=== PATIENT | male | born 1965 | race Caucasian/White ===

== ENCOUNTER 2020-05-31 11:27 | Inpatient (IN) | payer BC, SELFPAY ==
[2020-05-31] VITALS (14 sets, daily range): BP systolic 112–150; BP diastolic 69–119; PULSE 111–121; RESP 16–24; TEMP 36.5–37.4; O2SAT 92–98; BMI 30.8
--- NOTE | 2020-05-31 | SCC_ITS ---
Procedure Done: Open reduction internal fixation left displaced intertrochanteric hip fracture 293.9 seconds of fluoroscopic guidance, for a cumulative dose of 72.42 mGy, was provided to Dr. Swann by the radiology department. C-arm images of the LEFT hip were saved for the patient's permanent record. [facility]
--- NOTE | 2020-05-31 11:41 | XR_ITS ---
WS: [id number] XR hip LT 2-3V wo/w pel* [id number] REASON FOR EXAM: pain FINDINGS: Deep transcervical proximal femoral fracture which has more than 2 fragments. Femoral head remains no rmally positioned in the acetabulum. XR/XR hip LT 2-3V wo/w pel* [id number] IMPRESSION: Left hip fracture as above.
--- NOTE | 2020-05-31 11:42 | ED_ITS ---
HPI - Extremity Injury (Lower) General: Chief Complaint: Extremity Injury, Lower Stated Complaint: LEFT HIP AND LEG PAIN Time Seen by Provider: 05/31/20 11:31 History of Present Illness: HPI Narrative: 55-year-old male comes in complaining of left hip pain's been going on for about a week now he was seen a few days ago at a local clinic and had x-rays done he had not heard the results yet. Today he is unable to walk and has more severe pain in the left hip. He denies any falls. He does have a sensation of bone grinding in his hip as he describes it. complaint: hip injury Onset (ago): day(s) Place: home Severity: severe Relieving factors: rest Exacerbating factors: movement and palpation Context: walking Associated symptoms: Reports inability to bear weight Review of Systems Const: Denies: fever(s), chills, body aches, change in appetite, fatigue or malaise ENMT: Denies: throat pain, ear or mastoid pain, nasal discharge or nasal congestion Card: Denies: chest pain, edema, dyspnea on exertion or orthopnea Resp: Denies: dyspnea, productive cough or non-productive cough GI: Denies: abdominal pain, nausea, vomiting, hematemesis, coffee ground emesis, diarrhea, constipation, bloating, hematochezia or melena : Denies: flank pain, dysuria, urinary frequency or urinary urgency Skin/Breast: Denies: rash or pruritus PFSH ED PFSH: Medical History Daily consumption of alcohol HTN (hypertension) Hypothyroidism Smoking addiction TIA (transient ischemic attack) Surgical History Amputation, toe, traumatic With lawnmower in childhood H/O shoulder surgery Family History Other Diabetes Social History Smoking and tobacco status: current some day smoker cigarettes [ Other cigarette details: Occasionally, once every several weeks ] Alcohol intake: current Alcohol use comment: About 2 drinks per day of Amaretto Substance/Drug Use: never Lives independently: Yes Household members: significant other Marital status: Single Marital status details: Fiance Current occupational status: employed Physical Exam Const: COMMON NORMALS: no acute distress GENERAL APPEARANCE: cooperative and comfortable ORIENTATION/CONSCIOUSNESS: Yes awake, Yes oriented to person, Yes oriented to place and Yes oriented to time HENMT: COMMON NORMALS: normocephalic, atraumatic and hearing grossly normal bilaterally HEAD & SCALP: normocephalic and atraumatic Eye: COMMON NORMALS: Equal, round and reactive pupils present, EOMs intact bilaterally, conjunctivae normal and no scleral icterus CONJUNCTIVA: Yes conjunctivae normal PUPIL: Yes Equal, round and reactive pupils present Neck/C-Spine: COMMON NORMALS: full ROM, no lymphadenopathy, supple and no JVD Lymph: LYMPHATIC: no lymphadenopathy noted and no lymphedema noted Resp: COMMON NORMALS: normal respiratory effort, No retractions, No use of accessory muscles and clear to auscultation bilaterally AUSCULTATION: clear to auscultation bilaterally Cardio: COMMON NORMALS: no JVD, regular rate, regular rhythm and No murmurs present (Cardio) RATE: regular rate RHYTHM: regular rhythm GI: COMMON NORMALS: Soft to palpation and No hepatosplenomegaly present AUSCULTATION: Yes normoactive bowel sounds PALPATION: Yes Soft to palpation, No Tenderness to palpation present (GI), No Guarding due to palpation present (GI) and Yes No hepatosplenomegaly present Extremity: NARRATIVE EXTREMITY EXAM: Pain in the left hip with no obvious deformity shortening or external rotation of the time of exam. Palpation along the lateral aspect at the greater trochanter is painful any manipulation of the leg itself results in severe pain dorsalis pedis posterior tibialis pulses normal no swelling of the leg there is negative Homans' sign it is warm to the touch. X-ray shows fracture. Neuro: SENSORIUM/ORIENTATION: Yes oriented to person, Yes oriented to place and Yes oriented to time Skin: COMMON NORMALS: no rashes or lesions noted GENERAL SKIN EXAM: no rashes or lesions noted Course Vital Signs: Vital signs: Vital Signs Temperature 98.2 F 06/01/20 08:00 Pulse Rate 124 H 06/01/20 08:00 Respiratory Rate 18 06/01/20 08:00 Blood Pressure 130/87 06/01/20 08:00 Pulse Oximetry 93 06/01/20 08:00 MDM - Extremity Injury (Lower) MDM Narrative: Medical decision making narrative: Patient has a transcervical fracture of the left hip with some displacement. Discussed with Dr. Hilario CT ordered to further evaluate given the unusual nature of this without trauma. Hospitalist consulted for medical clearance Lab Data: Labs: Lab Results 05/31/20 05/31/20 05/31/20 Range/Units 11:12 11:12 11:12 WBC 12.4 H (4.0-10.0) 10^3/ uL RBC 4.53 (4.1-5.3) 10^6/u L Hgb 16.3 (11.7-16.6) g/dL Hct 46.6 (42.0-52.0) % MCV 102.9 H (80-94) fL MCH 36.0 H (28.0-34.0) pg MCHC 35.0 (30.0-36.0) g/dL RDW 11.8 L (12.1-15.1) % Plt Count 316 (130-400) 10^3/c mm MPV 10.1 (7.4-10.4) fL Neut % (Auto) 72.4 % Lymph % (Auto) 15.5 % Anderson % (Auto) 10.3 % Eos % (Auto) 0.7 % Baso % (Auto) 0.7 % Neut # (Auto) 8.94 H (1.8-7.7) 10^3/u L Lymph # (Auto) 1.9 (0.8-4.8) 10^3/u L Anderson # (Auto) 1.3 H (0.2-0.9) 10^3/u L Eos # (Auto) 0.1 (0.0-0.8) 10^3/u L Baso # (Auto) 0.1 (0.0-0.1) 10^3/u L Nucleated RBC % (a uto) 0 % Nucleated RBCs # 0.0 /100WBC ESR 16 H (0-10) mm/hr PT (12.1-14.9) SECO NDS INR (0.8-1.2) APTT (23.9-36.7) SECO NDS Sodium 135 L (136-145) mmol/L Potassium 3.3 L (3.5-5.1) mmol/L Chloride 98 (98-107) mmol/L Carbon Dioxide 19 L (22-29) mmol/L Anion Gap 21.3 H (5-19) BUN 11 (6-20) mg/dL Creatinine 0.5 L (0.7-1.2) mg/dL GFR Calculation 172.6 H (90-130) mL/min Glucose 106 (65-115) mg/dL Calculated Osmolal ity 280 L (285-295) mOsm/k g Calcium 9.8 (8.5-10.5) mg/dL Total Bilirubin 1.1 (0.15-1.2) mg/dL AST 31 (0-40) U/L ALT 27 (0-41) U/L Alkaline Phosphata se 134 H (40-130) IU/L Total Protein 7.5 (6.6-8.7) g/dL Albumin 4.3 (3.5-5.2) g/dL Globulin 3.2 (1.3-4.6) g/dL 05/31/20 Range/Units 11:12 WBC (4.0-10.0) 10^3/ uL RBC (4.1-5.3) 10^6/u L Hgb (11.7-16.6) g/dL Hct (42.0-52.0) % MCV (80-94) fL MCH (28.0-34.0) pg MCHC (30.0-36.0) g/dL RDW (12.1-15.1) % Plt Count (130-400) 10^3/c mm MPV (7.4-10.4) fL Neut % (Auto) % Lymph % (Auto) % Anderson % (Auto) % Eos % (Auto) % Baso % (Auto) % Neut # (Auto) (1.8-7.7) 10^3/u L Lymph # (Auto) (0.8-4.8) 10^3/u L Anderson # (Auto) (0.2-0.9) 10^3/u L Eos # (Auto) (0.0-0.8) 10^3/u L Baso # (Auto) (0.0-0.1) 10^3/u L Nucleated RBC % (a uto) % Nucleated RBCs # /100WBC ESR (0-10) mm/hr PT 12.40 (12.1-14.9) SECO NDS INR 0.90 (0.8-1.2) APTT 28.4 (23.9-36.7) SECO NDS Sodium (136-145) mmol/L Potassium (3.5-5.1) mmol/L Chloride (98-107) mmol/L Carbon Dioxide (22-29) mmol/L Anion Gap (5-19) BUN (6-20) mg/dL Creatinine (0.7-1.2) mg/dL GFR Calculation (90-130) mL/min Glucose (65-115) mg/dL Calculated Osmolal ity (285-295) mOsm/k g Calcium (8.5-10.5) mg/dL Total Bilirubin (0.15-1.2) mg/dL AST (0-40) U/L ALT (0-41) U/L Alkaline Phosphata se (40-130) IU/L Total Protein (6.6-8.7) g/dL Albumin (3.5-5.2) g/dL Globulin (1.3-4.6) g/dL Discharge Plan Discharge Patient Disposition: Admitted As Inpatient Admit Provider: Fe wSann Clinical Impression: Fracture of hip Condition: Stable Interventions: ED Discharge Assessment Last Done: 05/31/20 13:53 ED Charges Last Done: 05/31/20 13:53 Discharge Date/Time: 05/31/20 11:28 Coding Level of Care Code ED House Coordinator for Fortunato Hernandez
--- NOTE | 2020-05-31 11:43 | CT_ITS ---
WS: [id number] TECHNIQUE: with coronal and sagittal reformatted images. CLINICAL INFORMATION: pain COMPARISON: None. DLP: 2106.[address] scans at [facility] use at least one of these dose optimization techniques: automat ed exposure control; mA and/or kV adjustment per patient size (includes targeted exams where dose is matched to clinical indication); or iterative reconstruction. FINDINGS: Comminuted basicervical and intertrochanteric hip fracture with varus angulation. Multiple comminuted fracture fragments. Fracture extends into the lesser trochanter. Varus angulation with widening of t he femoral neck measuring 13 mm. Proximal retraction of the femoral shaft. Slightly depressed fractur e involving the posterior medial acetabulum. This is best visualized on the sagittal view. Normal visualized left pubic rami. Degenerative arthritis left sacroiliac joint. Soft tissue edema a bout the left hip joint. CT/CT hip LT wo con* [id number] IMPRESSION: 1. Comminuted basicervical femoral neck fracture with intertrochanteric extens ion. This extends into the lesser trochanter. 2. There is varus angulation with proximal retraction of the femoral shaft. 3. Multiple comminuted fracture fragments about the femoral neck. 4. Slightly depressed fracture involving the posterior medial acetabulum. This is best visualized on the sagittal view. 5. Left pubic rami appear normal.
[2020-05-31 12:47] LABS: Basophils # 0.1 10^3/uL (0.0-0.1); Basophils % 0.7 %; Eosinophils # 0.1 10^3/uL (0.0-0.8); Eosinophils % 0.7 %; Hematocrit 46.6 % (42.0-52.0); Hemoglobin 16.3 g/dL (11.7-16.6); Lymphocytes # 1.9 10^3/uL (0.8-4.8); Lymphocytes % 15.5 %; Mean Corpuscular Volume 102.9 fL (80-94); Mean Platelet Volume 10.1 fL (7.4-10.4); Monocytes # 1.3 10^3/uL (0.2-0.9); Monocytes % 10.3 %; Neutrophils # 8.94 10^3/uL (1.8-7.7); Neutrophils % 72.4 %; Nucleated Red Blood Cells % 0 %; Platelet Count 316 10^3/cmm (130-400); Red Blood Count 4.53 10^6/uL (4.1-5.3); Red Cell Distribution Width 11.8 % (12.1-15.1); White Blood Count 12.4 10^3/uL (4.0-10.0)
--- NOTE | 2020-05-31 12:53 | ECG_ITS ---
[facility] Test Date: 2020-05-31 Pat Name: Dayne Hurst Department: Room: Gender: Male Language And Literature Division Chair: : 1965 Requested By: Nathanael Cerna Order Number: [id number] Reading MD: LUPE ENRIQUE Measurements Intervals [place] Rate: 120 P: 35 IN: 134 QRS: 42 QRSD: 104 T: 29 QT: 328 QTc: 465 Interpretive Statements SINUS TACHYCARDIA POSSIBLE INFERIOR MYOCARDIAL INFARCTION [30 ms Q WAVE IN II/aVF], PROBABLY OLD ABNORMAL RHYTHM ECG No previous ECG available for comparison Electronically Signed On 05-31-2020 19:28:05 LEASE BUYER by LUPE ENRIQUE [id number]
--- NOTE | 2020-05-31 12:54 | XR_ITS ---
WS: [id number] XR chest 1V portable [id number] REASON FOR EXAM: tachycardia FINDINGS: There are no comparison examinations. The heart and mediastinum are within normal limits. There are linear opacities in both lung bases most compatible with platelike atelectasis and/or fibro sis. No other significant pulmonary parenchymal or pleural abnormality is noted. No significant bony thorax abnormality. XR/XR chest 1V portable [id number] IMPRESSION: Lung base abnormalities as above.
[2020-05-31 13:06] LABS: Alanine Aminotransferase 27 U/L (0-41); Albumin Level 4.3 g/dL (3.5-5.2); Alkaline Phosphatase 134 IU/L (40-130); Anion Gap 21.3 (5-19); Aspartate Amino Transferase 31 U/L (0-40); Blood Urea Nitrogen 11 mg/dL (6-20); Calcium 9.8 mg/dL (8.5-10.5); Carbon Dioxide 19 mmol/L (22-29); Chloride 98 mmol/L (98-107); Globulin 3.2 g/dL (1.3-4.6); Glomerular Filtration Rate 172.6 mL/min (90-130); Glucose 106 mg/dL (65-115); Osmolality Calculated 280 mOsm/kg (285-295); Potassium 3.3 mmol/L (3.5-5.1); Sodium 135 mmol/L (136-145); Total Bilirubin 1.1 mg/dL (0.15-1.2); Total Protein 7.5 g/dL (6.6-8.7)
[2020-05-31 13:14] LABS: Partial Thromboplastin Time 28.4 SECONDS (23.9-36.7)
--- NOTE | 2020-05-31 13:21 | PM.CONSULT ---
Providers/Reason For Consult Consulting Physican/Specialty*: Dr. Fe Swann - Orthopedics Reason for Consult*: Left intertrochanteric hip fracture Requesting Physcian: Dr. Nathanael Yanez Attending Physician: Dr. Cuellar - Hospitalist Primary Care Provider: Ilana Barroso History of Present Illness History of Present Illness Dayne Hurst is a 55 year old male who presented today to the emergency department with complaints of inability to ambulate. Prior to this, last evening, he notes he was walking down the [place]ctor at about 10:30 at night when he felt a pop in his hip. By history, the patient had left hip pain beginning on 05/25, and he was seen at [facility] urgent care on May 29 in the afternoon. Images were negative at that time. The patient therefore went home and went to work the following day. Today he presents with a displaced angulated intertrochanteric hip fracture. Review of Systems Const: Denies: fever(s), chills, body aches or malaise Eyes: Denies: change in vision or eye redness ENMT: Denies: throat pain, oral sores or ear or mastoid pain Card: Denies: chest pain, edema, pre-syncope or dyspnea on exertion Resp: Denies: dyspnea, productive cough, change in phlegm color or hemoptysis GI: Denies: abdominal pain, nausea, vomiting, diarrhea, constipation, hematochezia or melena : Denies: flank pain, difficulty urinating, urinary frequency or hematuria Musc: Reports: joint pain (L hip); Denies: back pain, joint swelling or joint redness Skin/Breast: Denies: rash, sores or new lesions Neuro: Denies: headache(s), numbness in extremities, weakness in extremities, dizziness, confusion or seizure-like activity Endo: Denies: polyuria or polydipsia René/Lymph: Denies: easy bleeding or purpura All/Imm: Denies: urticaria, throat swelling or tongue swelling Meds/Allergies Home Medications and Allergies Home Medications Medication Instructions Recorded Confirmed Last Taken Type Calcium 600 600 mg PO DAILY 05/31/20 05/31/20 Unknown History Vitamin B-12 1 tab PO DAILY 05/31/20 05/31/20 Unknown History Vitamin C 1 tab PO DAILY 05/31/20 05/31/20 Unknown History Vitamin D3 1 tab PO DAILY 05/31/20 05/31/20 Unknown History aspirin [Aspirin Low Dose] 81 mg PO DAILY 05/31/20 05/31/20 05/31/20 History citalopram 40 mg PO DAILY 05/31/20 05/31/20 05/30/20 History cyclobenzaprine 10 mg PO TID 05/31/20 05/31/20 05/31/20 History indomethacin 50 mg PO TID 05/31/20 05/31/20 05/30/20 History levothyroxine 88 mcg PO DAILY 05/31/20 05/31/20 05/31/20 History magnesium 1 tab PO DAILY 05/31/20 05/31/20 Unknown History multivitamin [Multiple Vitamins] 1 tab PO DAILY 05/31/20 05/31/20 Unknown History omeprazole 20 mg PO DAILY 05/31/20 05/31/20 05/31/20 History vitamin E 1 tab PO DAILY 05/31/20 05/31/20 Unknown History Allergies Allergy/AdvReac Type Severity Reaction Status Date / Time No Known Allergies Allergy Unverified 05/31/20 13:32 PFSH Acute PFSH: Medical History Daily consumption of alcohol HTN (hypertension) Hypothyroidism Smoking addiction TIA (transient ischemic attack) Surgical History Amputation, toe, traumatic With lawnmower in childhood H/O shoulder surgery Family History Other Diabetes Social History Smoking and tobacco status: current some day smoker cigarettes [ Other cigarette details: Occasionally, once every several weeks ] Alcohol intake: current Alcohol use comment: About 2 drinks per day of Amaretto Substance/Drug Use: never Lives independently: Yes Household members: significant other Marital status: Single Marital status details: Fiance Current occupational status: employed Vitals/I&O/Wt Last Vital Signs Temp 99.2 F 05/31/20 11:44 Pulse 118 H 05/31/20 12:33 Resp 20 H 05/31/20 12:33 BP 150/119 05/31/20 12:33 Pulse Ox 92 05/31/20 11:44 Weight last 48 hrs Weight 240 lb Physical Exam Const: COMMON NORMALS: no acute distress, average body habitus, patient oriented x3 and alert GENERAL APPEARANCE: cooperative and comfortable ORIENTATION/CONSCIOUSNESS: Yes awake HENMT: COMMON NORMALS: normocephalic and atraumatic HEAD & SCALP: normocephalic and atraumatic Eye: GENERAL EYE: appearance normal, both eyes and all related structures Chest: COMMONS NORMALS: normal inspection of the chest Resp: COMMON NORMALS: normal respiratory effort EFFORT & INSPECTION: Yes able to speak in complete sentences and Yes symmetric chest movement Extremity: GENERAL: Yes normal exam except as noted LEFT LOWER EXTREMITY: Yes hip joint (Pain to any range of motion.) Left hip: Yes inspection (There is no significant bruising.), Yes palpation (The hip is tender to palpation.), Yes ROM (Not evaluated secondary to fracture.) and Yes neurovascular exam (Intact distal to the fracture including motor and sensory function.) Neuro: COMMON NORMALS: patient oriented x3 SENSORIUM/ORIENTATION: Yes alert Psych: COMMON NORMALS: mental status grossly normal APPEARANCE: Yes grossly normal ATTITUDE: Yes calm and Yes engaged ATTENTION/CONCENTRATION: Yes attention grossly intact Skin: COMMON NORMALS: no rashes or lesions noted GENERAL SKIN EXAM: no rashes or lesions noted Data Imaging^: Xray Ortho: I personally reviewed and interpreted this imaging study as follows: My impression: Patient has been ambulated, displaced left intertrochanteric hip fracture. A&P Assessment and plan (1) Closed intertrochanteric fracture of left hip: The patient was admitted through the emergency department with a diagnosis of a displaced left intertrochanteric hip fracture. The patient will be seen and managed by the medical service secondary to comorbidities. Additionally, given the history behind the patient's fracture, we will obtain a CT prior to operative intervention to evaluate for any pathologic concern. The patient presented to [facility] days ago where x-rays were negative. He presented to the emergency department today with the above injury. Risks of complications will be discussed with the patient. Plan is for open reduction internal fixation, and as the patient has not eaten since yesterday afternoon, we will plan this today. Status: Acute Qualifiers: Encounter type: initial encounter Fracture alignment: displaced Qualified Code(s): S72.142A - Displaced intertrochanteric fracture of left femur, initial encounter for closed fracture Consult Attestations Medical Necessity Statement: Patient will require inpatient hospital stay as anticipated length of stay is greater than 2 midnights due to fracture and postoperative care. Coding Level of Care Code Acute Superintendent Pier for [facility] Diagnoses Closed intertrochanteric fracture of left hip S72.142A Encounter type: initial encounter Fracture alignment: displaced
--- NOTE | 2020-05-31 13:23 | P.ANESASSM_ITS ---
Pre-Anesthetic Assessment Pre-Anesthetic Assessment: Height/Weight: Height 1.88 m Weight 108.862 kg Temp Pulse Resp BP Pulse Ox 99.2 F 118 H 20 H 150/119 92 05/31/20 11:44 05/31/20 12:33 05/31/20 12:33 05/31/20 12:33 05/31/20 11:44 Preop Diagnosis: Left intertrochanteric displaced hip fracture Proposed Procedure: Operation Date: 05/31/20 14:40 Proposed Procedures p Trochanteric Femoral Nail(Left) - Fe Swann MD Familial anesthetic complications: None Was Beta Nasra taken within 24 hours: N/A Last intake: NPO > 8 hrs Social: Social History: Tobacco and No alcohol Exam: Pre-Anes Outpt Exam: alert, oriented x 3, clear to auscultation bilaterally and regular rate & rhythm Additional Exam Findings (including area of procedure): Sinus tachy Airway: Cervical ROM: WNL MP: 3 Dentition: Other (plates) Pulmonary: Pulmonary: COPD (mild, not on any meds) CV/HEM: CV/HEM: HTN GI: GI: GERD Metabolic: Metabolic: Morbid obesity Anesthetic Plan: ASA status: 3 Anesthesia: General Risk of > 500 ml blood loss (7ml/kg in children): No PFSH Anesthesia PFSH: Medical History (Updated 05/31/20 @ 13:23 by Fe wSann MD) Hypothyroidism TIA (transient ischemic attack) Data Anesthesia CBC & Chem 7: 05/31/20 11:12 05/31/20 11:12 Other Labs: Laboratory Results - last 48 hr 05/31/20 05/31/20 05/31/20 11:12 11:12 11:12 WBC 12.4 H RBC 4.53 Hgb 16.3 Hct 46.6 MCV 102.9 H MCH 36.0 H MCHC 35.0 RDW 11.8 L Plt Count 316 MPV 10.1 Neut % (Auto) 72.4 Lymph % (Auto) 15.5 [place]haw % (Auto) 10.3 Eos % (Auto) 0.7 Baso % (Auto) 0.7 Neut # (Auto) 8.94 H Lymph # (Auto) 1.9 [place] # (Auto) 1.3 H Eos # (Auto) 0.1 Baso # (Auto) 0.1 Nucleated RBC % (auto) 0 Nucleated RBCs # 0.0 PT 12.40 INR 0.90 APTT 28.4 Sodium 135 L Potassium 3.3 L Chloride 98 Carbon Dioxide 19 L Anion Gap 21.3 H BUN 11 Creatinine 0.5 L GFR Calculation 172.6 H Glucose 106 Calculated Osmolality 280 L Calcium 9.8 Total Bilirubin 1.1 AST 31 ALT 27 Alkaline Phosphatase 134 H Total Protein 7.5 Albumin 4.3 Globulin 3.2 Cardiac Studies: No Data to Display
[2020-05-31] MEDS: ondansetron 2 mg/ML SDV 2 mL 4 MG IVP (13:42)
[2020-05-31] MEDS: HYDROmorphone 1 mg/mL INJ 1 mL IVP (13:42)
[2020-05-31 13:57] LABS: Erythrocyte Sedimentation Rate 16 mm/hr (0-10)
[2020-05-31] MEDS: CELEcoxib 200 mg Capsule 400 MG PO (14:01)
[2020-05-31] MEDS: sodium chloride 0.9% 1,000 ML 30 ML IV (14:01)
--- NOTE | 2020-05-31 15:08 | PM.HP ---
Providers/Chief Complaint Primary Care Provider: Ilana Barroso Chief Complaint: LEFT HIP AND LEG PAIN History of Present Illness Dayne Hurst is a 55 year old gentleman without very much significant past medical history, but says he has been an intermittent smoker, but only occasionally, perhaps once every couple weeks, does report he has been managed for hypertension with lifestyle changes, and says that he may be developing some early COPD as told by his primary care provider. He otherwise has had a questionable episode of possible TIA in 2004, but it was not confirmed, and he has not been on any additional medications for it, and has not had any recurrence since. He reports that otherwise she has been in baseline state of health, until a week ago at which time he started to have some pain in his left hip. He did not think much of it, and continued his usual lifestyle. He went to work this past Wednesday, and subsequently yesterday felt a pop in his left hip subsequently resulting with much worse pain making it difficult to ambulate at all. On x-ray in ER he is found to have deep transcervical proximal femoral fracture with more than 2 fragments, as well as prescription with orthopedics surrounding hematoma. Review of Systems Const: Denies: fever(s), chills, body aches or malaise Eyes: Denies: change in vision or eye redness ENMT: Denies: throat pain, oral sores or ear or mastoid pain Card: Denies: chest pain, edema, pre-syncope or dyspnea on exertion Resp: Denies: dyspnea, productive cough, change in phlegm color or hemoptysis GI: Denies: abdominal pain, nausea, vomiting, diarrhea, constipation, hematochezia or melena : Denies: flank pain, difficulty urinating, urinary frequency or hematuria Musc: Reports: joint pain (L hip); Denies: back pain, joint swelling or joint redness Skin/Breast: Denies: rash, sores or new lesions Neuro: Denies: headache(s), numbness in extremities, weakness in extremities, dizziness, confusion or seizure-like activity Endo: Denies: polyuria or polydipsia René/Lymph: Denies: easy bleeding or purpura All/Imm: Denies: urticaria, throat swelling or tongue swelling Medications/Allergies Home Medications Medication Instructions Recorded Confirmed Last Taken Type Calcium 600 600 mg PO DAILY 05/31/20 05/31/20 Unknown History Vitamin B-12 1 tab PO DAILY 05/31/20 05/31/20 Unknown History Vitamin C 1 tab PO DAILY 05/31/20 05/31/20 Unknown History Vitamin D3 1 tab PO DAILY 05/31/20 05/31/20 Unknown History aspirin [Aspirin Low Dose] 81 mg PO DAILY 05/31/20 05/31/20 05/31/20 History citalopram 40 mg PO DAILY 05/31/20 05/31/20 05/30/20 History cyclobenzaprine 10 mg PO TID 05/31/20 05/31/20 05/31/20 History indomethacin 50 mg PO TID 05/31/20 05/31/20 05/30/20 History levothyroxine 88 mcg PO DAILY 05/31/20 05/31/20 05/31/20 History magnesium 1 tab PO DAILY 05/31/20 05/31/20 Unknown History multivitamin [Multiple Vitamins] 1 tab PO DAILY 05/31/20 05/31/20 Unknown History omeprazole 20 mg PO DAILY 05/31/20 05/31/20 05/31/20 History vitamin E 1 tab PO DAILY 05/31/20 05/31/20 Unknown History Allergies Allergy/AdvReac Type Severity Reaction Status Date / Time No Known Allergies Allergy Unverified 05/31/20 13:32 PFSH Acute PFSH: Medical History Daily consumption of alcohol HTN (hypertension) Hypothyroidism Smoking addiction TIA (transient ischemic attack) Surgical History Amputation, toe, traumatic With lawnmower in childhood H/O shoulder surgery Family History Other Diabetes Social History Smoking and tobacco status: current some day smoker cigarettes [ Other cigarette details: Occasionally, once every several weeks ] Alcohol intake: current Alcohol use comment: About 2 drinks per day of Amaretto Substance/Drug Use: never Lives independently: Yes Household members: significant other Marital status: Single Marital status details: Fiance Current occupational status: employed Vitals/I&O/Wt Last Vital Signs Temp 99.3 F 05/31/20 14:19 Pulse 121 H 05/31/20 13:53 Resp 18 05/31/20 13:53 BP 121/118 05/31/20 13:53 Pulse Ox 92 05/31/20 13:53 Weight last 48 hrs Weight 108.862 kg Physical Exam Const: COMMON NORMALS: no acute distress and patient oriented x3 GENERAL APPEARANCE: cooperative and comfortable NUTRITIONAL APPEARANCE: obese OTHER: Laying in bed. Awake, alert, pleasant, conversant. HENMT: COMMON NORMALS: oropharynx normal Neck/C-Spine: COMMON NORMALS: no JVD Resp: COMMON NORMALS: normal respiratory effort and clear to auscultation bilaterally AUSCULTATION: clear to auscultation bilaterally Cardio: COMMON NORMALS: no JVD, regular rhythm, S1 normal heart sound present, S2 normal heart sound present and No murmurs present (Cardio) RHYTHM: regular rhythm HEART SOUNDS: S1 normal heart sound present and S2 normal heart sound present GI: COMMON NORMALS: Normal to inspection, nondistended, normoactive bowel sounds present, Soft to palpation and non-tender PALPATION: Yes Soft to palpation Extremity: COMMON NORMALS: no joint enlargement and no pedal edema OTHER: Left hip tender Neuro: COMMON NORMALS: patient oriented x3 and moves all extremities Skin: COMMON NORMALS: no rashes or lesions noted GENERAL SKIN EXAM: no rashes or lesions noted Data : 05/31/20 11:12 05/31/20 11:12 A&P Assessment and plan (1) Closed intertrochanteric fracture of left hip: Left hip fracture with more than 2 fragments at the deep transcervical proximal femur. Femoral head normally positioned in acetabulum. Prescription with orthopedics with high concern for hematoma, bleeding. Concern for possible pathological fracture as he has not had any direct trauma, fall. No contribute possibility of chronic fatigue/stress fracture. He does say he does quite a bit of walking, sometimes heavy lifting. He does have history of smoking. We are attempting to obtain additional evaluation by CT of the hip. Afterwards the plan for discussion of ER physician with orthopedics is for repair of the fracture. Discussed with him as he is a current smoker, and he believes may be developing some COPD, this and if you his additional comorbidities may raise his risk of in terms of surgery. Given high risk of bleeding, as well as high concern for disability in case this is not her. He wants to proceed with a operation. Would proceed with usual cautions. EKG obtained, showing sinus tachycardia. He denies chest pain or pressure. He has no respiratory complaints. Some atelectasis is noted in lower lobes on x-ray. Rapid COVID-19 test is negative. He is afebrile. Per discussion with orthopedics due to concern for possible pathologic fracture, bone fragments will be obtained for pathology during the surgery. We will need additional evaluation with concern for possible occult malignancy given his age, smoking history. This can be completed after more urgent issues are taken care of. We will consider anticoagulation if hemostasis allows after surgery. Status: Acute Qualifiers: Encounter type: initial encounter Fracture alignment: displaced Qualified Code(s): S72.142A - Displaced intertrochanteric fracture of left femur, initial encounter for closed fracture (2) Smoking addiction: Says only occasional smoker, once every several weeks. Encourage cessation. Nicotine replacement if needed for cravings. Reports that he may be developing COPD. May benefit from outpatient PFT after acute issues resolved. Status: Acute (3) Tachycardia: Noted sinus tachycardia. He reports has been very active up until the day of the fracture, working. Denies any chest pain or pressure. No respiratory complaints. EKG with sinus tachycardia, nonspecific changes. Does appear to have a Q-wave in 2, 3, aVF. Otherwise no evidence of cardiac ischemia. With risk factors for coronary disease, consider additional nonemergent evaluation with stress testing after acute issues are taken care of. Status: Acute (4) HTN (hypertension): Monitor blood pressures. Reports has been managed with lifestyle at home. Status: Acute (5) Hypokalemia: Mild, receiving replacement. Status: Acute (6) Alkaline phosphatase elevation: Isolated alkaline phosphatase elevation noted, 134. May be secondary to fracture. Given possibility of pathological fracture will need additional evaluation. Status: Acute (7) Daily consumption of alcohol: Denies any history of withdrawal. Says drinks about 2 drinks per day of Amaretto. Monitor for withdrawal. Counseled on decreasing alcohol intake. Status: Acute Additional A&P Information Hypothyroidism Attestations Medical Necessity Statement*: Admission of over 2 midnights is continued versus management of left hip fracture, possible pathological fracture, and gentleman with underlying hypertension, possible COPD. 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
[2020-05-31] MEDS: vancomycin 1,000 MG in sodium chloride 0.9% 250 ML 250 MG IV (16:42)
--- NOTE | 2020-05-31 17:02 | PM.OP ---
Operative Report Date of procedure: May 31, 2020 Pre-op Diagnosis: Left intertrochanteric displaced hip fracture Post-op diagnosis: same Procedure Done: Open reduction internal fixation left displaced intertrochanteric hip fracture Implants: Gamma 3 trochanteric Jose nail size 11 mm x 180 mm x 130 degrees with a 10.5 mm x 110 mm gamma 3 lag screw proximally and a fully threaded distal locking screw size 5 mm x 10.5 mm Specimens removed/disposition: Intramedullary reamings Pathology: Reamings from the femur and femoral neck are sent to pathology for evaluation. Surgeon: Fe Swann Bicycle Racer: [facility] [place] Anesthesia: General (Intubated) Estimated blood loss (mL): 50 IV fluids (mL): 600 Urine output (mL): 0 Urine output: No Fair Complications: None Condition: stable Disposition: PACU (Then to floor) Brief History: This 55-year-old gentleman was in his usual state of health when he developed hip pain approximately 1 week ago. Mid week, he was seen at the urgent care for x-rays which were negative. That was 2 days ago. He went to work yesterday, and last evening, he developed severe pain and inability to ambulate after hearing a pop in his hip. He presented to the emergency department today where imaging demonstrated a displaced angulated intertrochanteric hip fracture. Prior to undergoing surgical intervention, a CT scan was obtained to evaluate for any sort of lytic lesion. The case was discussed with Dr. Cuellar of the hospitalist team as well. Procedure: Patient is brought to the operating theater. After undergoing adequate general anesthesia with intubation, the patient was transferred to the fracture table, positioned on the table and fluoroscopic guidance obtained throughout the surgical procedure. Prior to the commencement of the surgical procedure, a surgical pause was performed. At the time of the surgical pause, we confirmed the site and side of surgery as well as preoperative surgical markings and appropriate and timely administration of IV antibiotics, vancomycin 1 g. Availability of equipment was also confirmed. Fluoroscopy was used to confirm the fracture was appropriately reduced in both AP and lateral planes. As the patient was of unknown COVID status, all COVID precautions were maintained throughout the surgical procedure. An incision was then made slightly above the greater trochanter to allow access to the proximal greater trochanter. An awl was used to enter the greater trochanter and a guidewire was subsequently placed. Once the guidewire was confirmed to be in appropriate position in AP and lateral planes, reaming was accomplished over this to allow for the proximal diameter of the nail. Guidewire was then removed. An 11 mm x 180 mm x 130 degree gamma 3 trochanteric nail was passed into the femoral canal. Nail was placed into appropriate position with positioning being confirmed in AP and lateral planes on the x-ray. Guidewire was then passed through the jigging system into the femoral head. We wanted to be center or slightly inferior and posterior to center. Guidewire was placed into appropriate position. Once the guidewire was in appropriate position and this position was confirmed by x-ray. This was then measured and we chose a 10.5 mm x 110 mm lag screw. We reamed to allow for the lag screw to be placed. From the reamer we did obtain cancellous bone which was sent to pathology. The 110 mm lag screw was then passed into the femoral head through the trochanteric nail. This was passed uneventfully and again position was confirmed in AP and lateral planes. Compression was obtained under fluoroscopic guidance. The set screw was then placed in position, tightened completely, and subsequently backed off one-quarter turn. The construct was left in position and attention was directed distally. Cannulas were again used to determine appropriate placement for the distal screw. This was placed in position without difficulty. It was measured off of the drill. The appropriate length screw was then obtained and placed in position. Once the screw was in position, we confirmed appropriate placement of the components, and we removed the jigging system. Attention was then directed to closure. The hip was copiously irrigated with normal saline with antibiotics. Following this it was dried and closed. Tensor fascia louis was closed proximally with 0 Vicryl in an interrupted fashion. Subcutaneous tissues were closed with 2-0 Monocryl, and the skin was closed with a continuous 3-0 Monocryl subcuticular stitch. This was then covered with Tegaderm. The patient was removed from the fracture table and returned to recovery in satisfactory condition. The patient will be discharged to the floor for postoperative rehabilitation and pain management. Reamings from the femoral neck and proximal femur were sent to pathology. Associated Problem List Diagnoses (1) Closed intertrochanteric fracture of left hip: Qualifiers: Encounter type: initial encounter Fracture alignment: displaced Qualified Code(s): S72.142A - Displaced intertrochanteric fracture of left femur, initial encounter for closed fracture
--- NOTE | 2020-05-31 17:59 | SUR.OPER ---
[facility] PATIENT'S [facility] CALLED AND GIVEN UPDATE VIA CELL PHONE
[2020-05-31] MEDS: ceFAZolin 1,000 mg SDV 1000 MG IRRIGATION (18:15)
--- NOTE | 2020-05-31 19:06 | SUR.PHASEI ---
1902 PATIENT TO PACU FROM OR. RR EVEN AND UNLABORED. DRESSING TO LEFT HIP, CDI. PATIENT DENIES PAIN. SPO2 94% MASK AT 8L.
--- NOTE | 2020-05-31 19:16 | PM.PACU ---
PACU note PACU note: good resp effort vss Post-Anesthesia Exam: awake and vital signs stable Disposition: admitted
--- NOTE | 2020-05-31 19:39 | SUR.PHASEI ---
1926 PATIENT TO MED SURG. DENIES PAIN. DENIES WANTING ICE CHIPS. ICE TO LEFT HIP. DRAINAGE NOTED TO MIDDLE DRESSING, CIRCLED.
[2020-05-31] MEDS: CELEcoxib 200 mg Capsule PO (22:17)
[2020-05-31] MEDS: TRAMadol 50 mg Tablet PO (22:18)
[2020-05-31] MEDS: docusate sodium 100 mg Capsule PO (22:18)
[2020-06-01] VITALS (9 sets, daily range): BP systolic 96–130; BP diastolic 66–87; PULSE 77–145; RESP 16–20; TEMP 36.7–37; O2SAT 90–97
[2020-06-01] MEDS: oxyCODONE 5 mg IR Tab/Cap PO (04:57)
[2020-06-01] MEDS: sodium chloride 0.9% 1,000 ML 75 ML IV (05:29)
[2020-06-01] MEDS: enoxaparin 40 mg/0.4 mL Syringe SUBCUT (05:29)
[2020-06-01 06:47] LABS: Basophils # 0.1 10^3/uL (0.0-0.1); Basophils % 0.6 %; Eosinophils # 0.2 10^3/uL (0.0-0.8); Eosinophils % 2.1 %; Hematocrit 42.4 % (42.0-52.0); Hemoglobin 14.2 g/dL (11.7-16.6); Lymphocytes # 1.4 10^3/uL (0.8-4.8); Lymphocytes % 13.7 %; Mean Corpuscular HGB Conc 33.5 g/dL (30.0-36.0); Mean Corpuscular Hemoglobin 35.9 pg (28.0-34.0); Mean Corpuscular Volume 107.3 fL (80-94); Mean Platelet Volume 9.5 fL (7.4-10.4); Monocytes # 0.9 10^3/uL (0.2-0.9); Monocytes % 8.7 %; Neutrophils # 7.76 10^3/uL (1.8-7.7); Neutrophils % 74.5 %; Nucleated Red Blood Cells % 0 %; Platelet Count 237 10^3/cmm (130-400); Red Blood Count 3.95 10^6/uL (4.1-5.3); White Blood Count 10.4 10^3/uL (4.0-10.0)
[2020-06-01 07:07] LABS: Alanine Aminotransferase 21 U/L (0-41); Albumin Level 3.6 g/dL (3.5-5.2); Alkaline Phosphatase 110 IU/L (40-130); Anion Gap 13.8 (5-19); Aspartate Amino Transferase 27 U/L (0-40); Blood Urea Nitrogen 18 mg/dL (6-20); Calcium 8.6 mg/dL (8.5-10.5); Carbon Dioxide 25 mmol/L (22-29); Chloride 100 mmol/L (98-107); Globulin 2.8 g/dL (1.3-4.6); Glomerular Filtration Rate 100.4 mL/min (90-130); Glucose 111 mg/dL (65-115); Osmolality Calculated 283 mOsm/kg (285-295); Potassium 3.8 mmol/L (3.5-5.1); Sodium 135 mmol/L (136-145); Total Bilirubin 1.5 mg/dL (0.15-1.2); Total Protein 6.4 g/dL (6.6-8.7)
--- NOTE | 2020-06-01 08:07 | ANE.PACU2 ---
Inpatient post-anesthesia follow up: Airway intact: Yes Vital signs: Temperature 98.1 F Pulse Rate [Left R adial] 120 Pulse Rate 117 Respiratory Rate 20 Blood Pressure [Ri ght Arm] 148/112 Blood Pressure 99/69 Pulse Oximetry 90 Oxygen Delivery Me thod Room Air Oxygen Flow Rate 3 Fraction of Inspir ed Oxygen Hydration adequate: Yes Nausea and vomiting: No Pain level: 2 Mental status: Baseline
[2020-06-01] MEDS: citalopram 20 mg Tablet 40 MG PO (10:28)
[2020-06-01] MEDS: pantoprazole DR 40 mg Tablet PO (10:28)
[2020-06-01] MEDS: calcium carb-vit d 600mg/400unit 1 Tablet 1 EACH PO ×2 (10:29→17:08)
[2020-06-01] MEDS: TRAMadol 50 mg Tablet PO (10:29)
[2020-06-01] MEDS: docusate sodium 100 mg Capsule PO ×2 (10:29→17:08)
[2020-06-01] MEDS: multivitamin therapeutic Tablet 1 TAB PO (10:29)
[2020-06-01] MEDS: levothyroxine 88 mcg Tablet PO (10:30)
[2020-06-01] MEDS: cholecalciferol (vitamin D3) 1,000 unit Tablet 1000 UNIT PO (10:30)
[2020-06-01] MEDS: CELEcoxib 200 mg Capsule PO ×2 (10:30→17:07)
--- NOTE | 2020-06-01 11:14 | PM.PN ---
Subjective Subjective: Interval history: Reports this morning he is feeling well. Pain is tolerable. Denies any discomfort actually. No shortness of breath, no chest pain or pressure. No nausea or vomiting. Discussed with him tachycardia, he states that his heart rate has been chronically high ever since childhood. Says he had seen several physicians about it. Discussed with him again concern for possibility of pathological fracture. Discussed results of the CT. Discussed results of the x-ray with possible atelectasis versus fibrosis. He says he has been trying to work on incentive spirometry while here. Reports that he did have a PFT in the past, but it was probably about 14-15 years ago. Vitals/I&O/Wt Last Vital Signs Temp 98.2 F 06/01/20 08:00 Pulse 124 H 06/01/20 08:00 Resp 18 06/01/20 08:00 BP 130/87 06/01/20 08:00 Pulse Ox 93 06/01/20 08:00 05/31/20 06/01/20 06/01/20 22:59 06:59 14:59 Intake Total 250 / 250 960 / 1210 240 / 240 Output Total 50 / 50 1200 / 1250 Balance 200 / 200 -240 / -40 240 / 240 Weight last 48 hrs Weight 109.588 kg Weight 108.862 kg Physical Exam Const: COMMON NORMALS: no acute distress and patient oriented x3 GENERAL APPEARANCE: cooperative and comfortable NUTRITIONAL APPEARANCE: obese OTHER: Laying in bed. Awake, alert, pleasant, conversant. HENMT: COMMON NORMALS: oropharynx normal Neck/C-Spine: COMMON NORMALS: no JVD Resp: COMMON NORMALS: normal respiratory effort and clear to auscultation bilaterally AUSCULTATION: clear to auscultation bilaterally Cardio: COMMON NORMALS: no JVD, regular rhythm, S1 normal heart sound present, S2 normal heart sound present and No murmurs present (Cardio) RHYTHM: regular rhythm HEART SOUNDS: S1 normal heart sound present and S2 normal heart sound present GI: COMMON NORMALS: Normal to inspection, nondistended, normoactive bowel sounds present, Soft to palpation and non-tender PALPATION: Yes Soft to palpation Extremity: COMMON NORMALS: no joint enlargement and no pedal edema OTHER: Left hip with some pain, some amount of bloody strikethrough on wound incisions, some minimal bruising. Some swelling is noted compared to right side. No swelling at the ankle. Lower extremity well perfused. Neuro: COMMON NORMALS: patient oriented x3 and moves all extremities Skin: COMMON NORMALS: no rashes or lesions noted GENERAL SKIN EXAM: no rashes or lesions noted Urinary Catheter Management^: Fair: Cath Placed During This Visit: yes Reason for Continuing Indwelling Catheter: Acute Urinary Retention or Obstruction Urinary Catheter Date of Insertion: 06/01/20 Urinary Catheter Time of Insertion: 05:00 Data : 06/01/20 06:30 06/01/20 06:30 A&P Assessment and plan (1) Closed intertrochanteric fracture of left hip: Subjectively he is doing well. Some minor pain this morning. There is little bit of swelling in the left side, small moderate bloody strikethrough on one of the incisions. Hemoglobin down slightly from 16->14. He reports some urinary retention this morning, and after attempting to urinate still 900 residual. Fair catheter was reinserted. Discussed with him we will continue Fair catheter for now, may be related to medications, possibly pain, possibly BPH among the more common causes. He is agreeable to initiate Flomax here, and follow-up further with his primary care provider. We could reattempt voiding trial prior to discharge, but if unsuccessful may need to follow-up with urology. VTE prophylaxis with Lovenox. Discussed with him concern regarding pathological fracture. Discussed with him results of hip CT. He is agreeable to follow-up as discussed with orthopedics with additional bone scan after discharge, and understands may need additional diagnostic studies after that as directed by his PCP. Follow-up pathology on bone samples from surgery. PT, OT. Discharge planning. Will DC IV fluid. Concern for possible pathological fracture as he has not had any direct trauma, fall. No contribute possibility of chronic fatigue/stress fracture. He does say he does quite a bit of walking, sometimes heavy lifting. He does have history of smoking. Status: Acute Qualifiers: Encounter type: initial encounter Fracture alignment: displaced Qualified Code(s): S72.142A - Displaced intertrochanteric fracture of left femur, initial encounter for closed fracture (2) Tachycardia: Persistent tachycardia. Discussed with him. He reports he has chronic tachycardia since childhood. Reports has seen several physicians about it. Most told it is benign, some of it may be related more recently to suspected progression to COPD. He does have atelectasis, but possible fibrotic changes in lower lungs noted on x-ray. He denies any trouble with breathing. He has been working with [employer]. Denies any pleuritic or other chest discomfort. No cough. He does have thyroid medication on home meds. Will check TSH. Noted sinus tachycardia. He reports has been very active up until the day of the fracture, working. EKG with sinus tachycardia, nonspecific changes. Does appear to have a Q-wave in 2, 3, aVF. Otherwise no evidence of cardiac ischemia. With risk factors for coronary disease, consider additional nonemergent evaluation with stress testing after acute issues are taken care of. Continue aspirin. Started on low-dose metoprolol. Will check lipid panel. Status: Acute (3) Smoking addiction: Says only occasional smoker, once every several weeks. Encourage cessation. Nicotine replacement if needed for cravings. Reports that he may be developing COPD. May benefit from outpatient PFT after acute issues resolved. Status: Acute (4) HTN (hypertension): Monitor blood pressures. Reports has been managed with lifestyle at home. Started on Flomax here. Discussed with him the effects. Discussed orthostatic precautions. Status: Acute (5) Hypokalemia: Mild, receiving replacement. Status: Acute (6) Alkaline phosphatase elevation: Isolated alkaline phosphatase elevation noted, 134. May be secondary to fracture. Resolved. Given possibility of pathological fracture will need additional evaluation. Status: Acute (7) Daily consumption of alcohol: Denies any history of withdrawal. Says drinks about 2 drinks per day of Amaretto. Monitor for withdrawal. Status: Acute Additional A&P Information Hypothyroidism Attestations Medical Necessity Statement*: Continue admission for assessment and management following left hip fracture and repair, urinary retention, mobilization, disposition planning. Coding Level of Care Code Acute Clinical Specialty Rep for Fortunato Hernandez Diagnoses Closed intertrochanteric fracture of left hip S72.142A Encounter type: initial encounter Fracture alignment: displaced Tachycardia R00.0 Smoking addiction F17.200 HTN (hypertension) I10 Hypokalemia E87.6 Alkaline phosphatase elevation R74.8 Daily consumption of alcohol Z78.9
[2020-06-01] MEDS: metoprolol tartrate 25 mg Tablet 12.5 MG PO ×2 (11:39→21:23)
[2020-06-01] MEDS: tamsulosin 0.4 mg Capsule PO (11:39)
[2020-06-01 11:57] LABS: Glucose Point of Care 115 mg/dL (70-110)
[2020-06-01 12:06] LABS: Thyroid Stimulating Hormone 3.71 uIU/mL (0.27-4.20)
--- NOTE | 2020-06-01 13:17 | P.PN_ITS ---
Subjective Subjective: Interval history: Patient is doing well following open reduction internal fixation of his intertrochanteric hip fracture. He is advised that there is also an acetabular fracture visualized on his CT. He is in good spirits and anticipates being discharged to home. Medications: Reviewed: Yes Vitals/I&O/Wt Last Vital Signs Temp 98.6 F 06/01/20 12:00 Pulse 145 H 06/01/20 12:00 Resp 17 06/01/20 12:00 BP 120/81 06/01/20 12:00 Pulse Ox 92 06/01/20 12:00 05/31/20 06/01/20 06/01/20 22:59 06:59 14:59 Intake Total 250 / 250 960 / 1210 600 / 600 Output Total 50 / 50 1200 / 1250 Balance 200 / 200 -240 / -40 600 / 600 Weight last 48 hrs Weight 241 lb 9.6 oz Weight 240 lb Physical Exam Const: COMMON NORMALS: no acute distress, average body habitus, patient oriented x3 and alert GENERAL APPEARANCE: cooperative and comfortable ORIENTATION/CONSCIOUSNESS: Yes awake HENMT: COMMON NORMALS: normocephalic and atraumatic HEAD & SCALP: normocephalic and atraumatic Eye: GENERAL EYE: appearance normal, both eyes and all related structures Chest: COMMONS NORMALS: normal inspection of the chest Resp: COMMON NORMALS: normal respiratory effort EFFORT & INSPECTION: Yes able to speak in complete sentences and Yes symmetric chest movement Extremity: GENERAL: Yes normal exam except as noted LEFT LOWER EXTREMITY: Yes hip joint Left hip: Yes inspection (The more distal of the patient's wounds. These are redressed. There is no evidence of infection.), Yes palpation (There is no significant tenderness to palpation about the hip.), Yes ROM (Gentle range of motion causes groin pain as anticipated. The patient is comfortable a mbulating.) and Yes neurovascular exam (Intact distal to the fracture.) Neuro: COMMON NORMALS: patient oriented x3 SENSORIUM/ORIENTATION: Yes alert Psych: COMMON NORMALS: mental status grossly normal APPEARANCE: Yes grossly normal ATTITUDE: Yes calm and Yes engaged ATTENTION/CONCENTRATION: Yes attention grossly intact Skin: COMMON NORMALS: no rashes or lesions noted GENERAL SKIN EXAM: no rashes or lesions noted Urinary Catheter Management^: Fair: Cath Placed During This Visit: yes Reason for Continuing Indwelling Catheter: Acute Urinary Retention or Obstruction Urinary Catheter Date of Insertion: 06/01/20 Urinary Catheter Time of Insertion: 05:00 Data : 06/02/20 03:31 06/02/20 03:31 A&P Assessment and plan (1) Closed intertrochanteric fracture of left hip: Patient is doing well following open reduction internal fixation of his left intertrochanteric hip fracture. Pathology is pending from reamings obtained at the time of the surgical procedure. The patient is also advised of his acetabular fracture which is visualized on CT. This will not require any sort of open reduction internal fixation, however, we will continue partial weightbearing with the patient for longer than previously anticipated. Incisions are benign. There is no evidence of infection. The patient remains neurologically intact. Status: Acute Qualifiers: Encounter type: initial encounter Fracture alignment: displaced Qualified Code(s): S72.142A - Displaced intertrochanteric fracture of left femur, initial encounter for closed fracture (2) Status post hip surgery: Status: Acute (3) Left acetabular fracture: CT demonstrates posterior medial acetabular fracture. This will require ongoing limitation in weightbearing. Further CT may be required for evaluation as rehabilitation progresses over the next several weeks. Attestations Medical Necessity Statement*: Patient require postoperative rehabilitation and pain management. Awaiting pathology results as well. 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
[2020-06-01] MEDS: vancomycin 1,000 MG in sodium chloride 0.9% 250 ML 250 MG IV (17:07)
--- NOTE | 2020-06-01 18:30 | XR_ITS ---
WS: [id number] Left hip, 3 views C-arm fluoroscopy, 05/31/2020 Clinical Data: OR PICS Comparison: Left hip, 05/31/2020. Findings: There is a left hip nail reducing the intertrochanteric fracture. There is a proximal intramedullary femoral malik fixed with a transverse screw distally. XR/XR hip LT 2-3V wo/w pel* [id number] Impression: Internal fixation of left intertrochanteric hip fracture
[2020-06-01] MEDS: acetaminophen 325 mg Tablet 650 MG PO (21:22)
[2020-06-02] VITALS (11 sets, daily range): BP systolic 113–130; BP diastolic 76–88; PULSE 87–109; RESP 16–18; TEMP 36.5–37; O2SAT 91–96
[2020-06-02 03:43] LABS: Basophils % 0.4 %; Eosinophils # 0.4 10^3/uL (0.0-0.8); Hematocrit 38.1 % (42.0-52.0); Hemoglobin 12.7 g/dL (11.7-16.6); Lymphocytes # 1.7 10^3/uL (0.8-4.8); Lymphocytes % 17.8 %; Mean Corpuscular HGB Conc 33.3 g/dL (30.0-36.0); Mean Corpuscular Hemoglobin 36.6 pg (28.0-34.0); Mean Corpuscular Volume 109.8 fL (80-94); Mean Platelet Volume 9.3 fL (7.4-10.4); Monocytes # 0.8 10^3/uL (0.2-0.9); Monocytes % 8.2 %; Neutrophils # 6.57 10^3/uL (1.8-7.7); Neutrophils % 69.2 %; Nucleated Red Blood Cells % 0 %; Platelet Count 196 10^3/cmm (130-400); Red Blood Count 3.47 10^6/uL (4.1-5.3); Red Cell Distribution Width 11.9 % (12.1-15.1); White Blood Count 9.5 10^3/uL (4.0-10.0)
[2020-06-02 04:10] LABS: Alanine Aminotransferase 18 U/L (0-41); Albumin Level 3.3 g/dL (3.5-5.2); Alkaline Phosphatase 94 IU/L (40-130); Anion Gap 11.8 (5-19); Aspartate Amino Transferase 26 U/L (0-40); Blood Urea Nitrogen 16 mg/dL (6-20); Carbon Dioxide 26 mmol/L (22-29); Chloride 102 mmol/L (98-107); Globulin 2.7 g/dL (1.3-4.6); Glomerular Filtration Rate 100.4 mL/min (90-130); Glucose 111 mg/dL (65-115); Osmolality Calculated 284 mOsm/kg (285-295); Potassium 3.8 mmol/L (3.5-5.1); Sodium 136 mmol/L (136-145)
[2020-06-02 04:11] LABS: Cholesterol 192 mg/dL (0-200); HDL Cholesterol 48 mg/dL (60-100); LDL Cholesterol Calculated 110 mg/dL (50-129); LDL HDL Ratio 2.29 RATIO (0.00-3.22); Triglycerides 171 mg/dL (0-150)
[2020-06-02] MEDS: enoxaparin 40 mg/0.4 mL Syringe SUBCUT (04:14)
--- NOTE | 2020-06-02 06:30 | NUR.SHIFT ---
Patient mainly slept. With what pain the patient had, it was mainly controlled by PO Tylenol. No other changes were noted.
[2020-06-02] MEDS: oxyCODONE 5 mg IR Tab/Cap PO ×2 (09:10→14:35)
[2020-06-02] MEDS: citalopram 20 mg Tablet 40 MG PO (09:11)
[2020-06-02] MEDS: docusate sodium 100 mg Capsule PO (09:11)
[2020-06-02] MEDS: calcium carb-vit d 600mg/400unit 1 Tablet 1 EACH PO (09:11)
[2020-06-02] MEDS: CELEcoxib 200 mg Capsule PO (09:11)
[2020-06-02] MEDS: levothyroxine 88 mcg Tablet PO (09:11)
[2020-06-02] MEDS: metoprolol tartrate 25 mg Tablet 12.5 MG PO (09:12)
[2020-06-02] MEDS: pantoprazole DR 40 mg Tablet PO (09:12)
[2020-06-02] MEDS: tamsulosin 0.4 mg Capsule PO (09:12)
[2020-06-02] MEDS: cholecalciferol (vitamin D3) 1,000 unit Tablet 1000 UNIT PO (09:13)
[2020-06-02] MEDS: multivitamin therapeutic Tablet 1 TAB PO (09:13)
--- NOTE | 2020-06-02 11:38 | PC.NURSE ---
Urinary catheter removed. Patient tolerated well. 9mL of ns removed from balloon and andrade removed intact. Instructed patient to void in urinal and would complete a bladder scan as needed to ensure that patient is emptying completely and not retaining. Patient verbalized understanding.
--- NOTE | 2020-06-02 11:56 | CTR_ITS ---
PROCEDURE INFORMATION: Exam: CT Angiography Chest With Contrast Exam date and time: 06/02/2020 1:10 PM Age: 55 years old Clinical indication: Shortness of breath; Patient HX: PT is 2 days S/P orif L hip FX w SOB and tachycardia; Additional info: Hypoxia TECHNIQUE: Imaging protocol: Computed tomographic angiography of the chest with intravenous contrast. 3D rendering (Not supervised by radiologist): MIP and/or 3D reconstructed images were created by the technologist. Radiation optimization: All CT scans at this facility use at least one of these dose optimization techniques: automated exposure control; mA and/or kV adjustment per patient size (includes targeted exams where dose is matched to clinical indication); or iterative reconstruction. Contrast material: OMNI 350; Contrast volume: 76 ml; Contrast route: INTRAVENOUS (IV); COMPARISON: CR XR chest 1V portable [id number] 05/31/2020 12:55 PM RADIATION DOSE METRICS: Total DLP (mGy-cm): 628.36 FINDINGS: Pulmonary arteries: Suboptimal pulmonary arterial opacification. No large or central PE evident. Aorta: Unremarkable. No aortic aneurysm. No aortic dissection. Lungs: Focal hazy infiltrates in the upper lobes suggesting possible COVID-19 pneumonia. Curvilinear plate of atelectasis coursing obliquely through right lower lobe. Pleural space: Unremarkable. No pneumothorax. No pleural effusion. Heart: Unremarkable. No cardiomegaly. No pericardial effusion. Lymph nodes: Unremarkable. No enlarged lymph nodes. Bones/joints: Unremarkable. No acute fracture. Soft tissues: Unremarkable. CT/CT angio chest PE protcl [id number] IMPRESSION: 1.) Suboptimal pulmonary arterial opacification. No large or central PE evident. 2.)Focal hazy infiltrates in the upper lobes suggesting possible COVID-19 pneumonia. Curvilinear plate of atelectasis coursing obliquely through right lower lobe. Radiation Dose CTDIVOL = (mGy): DLP = 628.36 (mGy-cm)
[2020-06-02] MEDS: iohexol 350 mg/mL 100 mL Btl IV (13:37)
--- NOTE | 2020-06-02 17:51 | PM.DCS ---
Discharge Providers Date of Admission: 05/31/20 18:43 Date of Discharge: June 02, 2020 Attending Provider at Admission: Fe Swann MD Attending Provider at Discharge: Joselo Cuellar Primary Care Provider: Ilana Barroso Diagnoses at Discharge Discharge Diagnosis (1) Closed intertrochanteric fracture of left hip: Status: Acute Permanent problem details: Possible pathologic fracture? Qualifiers: Encounter type: initial encounter Fracture alignment: displaced Qualified Code(s): S72.142A - Displaced intertrochanteric fracture of left femur, initial encounter for closed fracture (2) Status post hip surgery: Status: Acute (3) Left acetabular fracture: Status: Acute (4) Fracture of hip: Status: Acute (5) Tachycardia: Status: Acute (6) Alkaline phosphatase elevation: Status: Acute (7) Smoking addiction: Status: Acute (8) HTN (hypertension): Status: Acute (9) Daily consumption of alcohol: Status: Acute (10) Hypokalemia: Status: Acute (11) Lung infiltrate on CT: Status: Acute (12) Atelectasis: Status: Acute Reason for Visit Reason for Visit: LEFT HIP AND LEG PAIN Hospital Course Discharge Summary: Mr. Hurst is a very pleasant 55-year-old gentleman without much significant past medical history, but says he has been an intermittent smoker, perhaps once every couple weeks, does report he has been managed for hypertension with lifestyle changes, and says that he may be developing some early COPD as told by his primary care provider. He otherwise has had a questionable episode of possible TIA in 2004, but it was not confirmed, and he has not been on any additional medications for it, and has not had any recurrence since. He also reports having history of sinus tachycardia since childhood. Hehas been in baseline state of health until a week ago at which time started to have some pain in his left hip. He did not think much of it and continued his usual lifestyle. He went to work this past Wednesday, and subsequently on felt a pop in his left hip resulting in much worse pain making it difficult to ambulate at all. On x-ray in ER he is found to have deep transcervical proximal femoral fracture with more than 2 fragments, as well as per discussion with orthopedics surrounding hematoma. He denies any significant trauma to his hip, any fall, he does work for [employer], and climbs, and does lift heavy objects occasionally, sometimes has to do some shoveling. With concern for pathological fracture CT of the head was obtained, although with expectation that it may not be the best quality given fracture and hematoma. Found to have comminuted basicervical femoral neck fracture with intertrochanteric extension, extending to the lesser trochanter, multiple comminuted fracture fragments about the femoral neck, slightly depressed fracture involving posterior medial acetabulum. Due to concern for high risk of bleeding he underwent operative repair on the night of admission and did well. Minimal hemoglobin decrease subsequently. Was noted to have urinary retention for which Fair catheter had to be replaced day after surgery. Noted to have persistent sinus tachycardia in 120s. Temporary minimal hypoxia requiring 2 L of nasal cannula oxygen. Subjectively he was doing very well, and mobilized without any issues. Worked well with occupational therapy, with recommended home exercise program. Did well with PT with recommended outpatient physical therapy. Home health care is ordered for him due to recommendation for continued partial weightbearing on the left leg until follow-up with orthopedics. Due to this should hold off from returning to work until he is cleared by the specialist. Due to minimal hypoxia, persistent sinus tachycardia was assessed by CT angiogram of the chest after x-ray showed bilateral lower lung atelectasis versus scarring. He worked well with incentive spirometry. CT angiogram did not show large vessel PE, with suboptimal visualization of small vessels, with noted focal hazy infiltrates in upper lobes concerning for possible COVID-19 pneumonia. His rapid COVID-19 test was negative on presentation. PCR was sent as well, however, is still pending. Also noted curvilinear plate of atelectasis coursing obliquely through the right lower lobe. Given history of smoking, all these findings will benefit from follow-up for resolution. All findings discussed with him, and he is instructed to maintain isolation until at least COVID-19 results are available. He is otherwise feeling well, and wanting to return home. He does not qualify for any oxygen on home O2 evaluation. He is discharged with Lovenox for VT prophylaxis. He did well on voiding trial and Fair catheter was removed successfully. He was started on Flomax while in the hospital. Please follow-up regarding these issues. And direct further assessment is needed. Due to concern for possible pathological fracture he is also referred for bone scan. Please follow-up results please also follow-up pathology of bone fragments collected during ORIF of left hip fracture. Additionally consider referral for PFT for assessment of possibly developing COPD. Consider referral to cardiology for additional assessment of persistent sinus tachycardia. With noted EKG changes, consider referral for nonemergent stress testing for assessment of coronary disease given risk factors. Please assist him with smoking cessation. Please group therapy counselor on daily alcohol intake. Physical Exam Const: COMMON NORMALS: no acute distress and patient oriented x3 GENERAL APPEARANCE: cooperative and comfortable NUTRITIONAL APPEARANCE: obese OTHER: Sitting at edge of bed. Awake, alert, pleasant, conversant. HENMT: COMMON NORMALS: oropharynx normal Neck/C-Spine: COMMON NORMALS: no JVD Resp: COMMON NORMALS: normal respiratory effort and clear to auscultation bilaterally AUSCULTATION: clear to auscultation bilaterally Cardio: COMMON NORMALS: no JVD, regular rhythm, S1 normal heart sound present, S2 normal heart sound present and No murmurs present (Cardio) RHYTHM: regular rhythm HEART SOUNDS: S1 normal heart sound present and S2 normal heart sound present GI: COMMON NORMALS: Normal to inspection, nondistended, normoactive bowel sounds present, Soft to palpation and non-tender PALPATION: Yes Soft to palpation Extremity: COMMON NORMALS: no joint enlargement and no pedal edema OTHER: Left hip with minimal bruising. Some swelling is noted compared to right side. No swelling at the ankle. Lower extremity well perfused. Neuro: COMMON NORMALS: patient oriented x3 and moves all extremities Skin: COMMON NORMALS: no rashes or lesions noted GENERAL SKIN EXAM: no rashes or lesions noted Urinary Catheter Management^: Fair: Cath Placed During This Visit: yes, but has since been removed by the nurse Reason for Continuing Indwelling Catheter: Decision to DC Catheter Urinary Catheter Date of Insertion: 06/01/20 Urinary Catheter Time of Insertion: 05:00 Date Urinary Catheter Removed: 06/02/20 Time Urinary Catheter Discontinued: 11:34 Discharge Data Data Completed and Pending: Completed Studies During Hospitalization Category Date Time Status CT angio chest PE protcl [id number] Rout ine Cat Scan 06/02/20 11:[address] hip LT wo con* [id number] Stat Cat Scan 05/31/20 11:43 Completed XR chest 1V brittnee ble [id number] Stat Exams 05/31/20 12:54 Completed XR hip LT 2-3V wo /w pel* [id number] Stat Exams 05/31/20 11:41 Completed Pending at discharge Category Date Time Status XR hip LT 2-3V wo /w pel* [id number] Rout ine Exams 06/01/20 18:30 Taken Complete Blood Co unt w/Auto AM LABS Lab 06/03/20 04:00 Ordered Comprehensive Met abolic Panel AM LA BS Lab 06/03/20 04:00 Ordered Coronavirus Lab T est PTC Routine Lab 05/31/20 13:40 Received Pathology: Surgic al [PTH] Routine Pth 05/31/20 19:14 Ordered Labs from last 24 hours 06/02/20 06/02/20 06/02/20 03:31 03:31 03:31 WBC 9.5 RBC 3.47 L Hgb 12.7 Hct 38.1 L MCV 109.8 H MCH 36.6 H MCHC 33.3 RDW 11.9 L Plt Count 196 MPV 9.3 Neut % (Auto) 69.2 Lymph % (Auto) 17.8 Lynn % (Auto) 8.2 Eos % (Auto) 4.0 Baso % (Auto) 0.4 Neut # (Auto) 6.57 Lymph # (Auto) 1.7 Lynn # (Auto) 0.8 Eos # (Auto) 0.4 Baso # (Auto) 0.0 Nucleated RBC % (a uto) 0 Nucleated RBCs # 0.0 Sodium 136 Potassium 3.8 Chloride 102 Carbon Dioxide 26 Anion Gap 11.8 BUN 16 Creatinine 0.8 GFR Calculation 100.4 Glucose 111 Calculated Osmolal ity 284 L Calcium 9.0 Total Bilirubin 1.0 AST 26 ALT 18 Alkaline Phosphata se 94 Total Protein 6.0 L Albumin 3.3 L Globulin 2.7 Triglycerides 171 H Cholesterol 192 LDL Cholesterol, C alc 110 HDL Cholesterol 48 L LDL/HDL Ratio 2.29 Cholesterol/HDL Ra berenice 4.00 Vitals: Last Vital Signs Temp 98.6 F 06/02/20 16:52 Pulse 104 H 06/02/20 16:52 Resp 16 06/02/20 16:52 BP 123/86 06/02/20 16:52 Pulse Ox 92 06/02/20 16:52 Discharge Plan Discharge Patient Disposition: Home Health Service Condition: Stable Prescriptions: New celecoxib 200 mg Capsule 200 mg PO BID Qty: 60 RF: 0 enoxaparin 40 mg/0.4 mL Syringe 40 mg SUBCUT Q24H Qty: 14 RF: 0 Tylenol Extra Strength 500 mg tablet 500 mg PO TID 30 Days Qty: 90 RF: 0 oxycodone 5 mg tablet 5 mg PO Q4H PRN (Reason: pain) Qty: 30 RF: 0 tamsulosin 0.4 mg Capsule 0.4 mg PO DAILY Qty: 30 RF: 0 metoprolol tartrate 25 mg Tablet 12.5 mg PO 09,21 Qty: 15 RF: 0 Continued Multiple Vitamins Tablet 1 tab PO DAILY RF: 0 cyclobenzaprine 10 mg tablet 10 mg PO TID RF: 0 citalopram 40 mg tablet 40 mg PO DAILY RF: 0 Aspirin Low Dose 81 mg Tablet,Delayed Release (Dr/Ec) 81 mg PO DAILY RF: 0 levothyroxine 88 mcg tablet 88 mcg PO DAILY RF: 0 omeprazole 20 mg Tablet,Delayed Release (Dr/Ec) 20 mg PO DAILY RF: 0 Calcium 600 600 mg PO DAILY RF: 0 Vitamin B-12 1 tab PO DAILY RF: 0 Vitamin C 1 tab PO DAILY RF: 0 Vitamin D3 1 tab PO DAILY RF: 0 magnesium 1 tab PO DAILY RF: 0 vitamin E 1 tab PO DAILY RF: 0 Discontinued indomethacin 50 mg capsule 50 mg PO TID RF: 0 Discharge Orders: Discharge Order (Routine); Ordered 06/01/20 Ordered By: Fe Swann Other Ambulatory Orders: NM bone scan whole body* [id number] (Routine) Timeframe: 2 Weeks Facility: [facility] - Location: Radiology Ordered By: Joselo Cuellar Physical Therapy Eval and Treat Outpatient (Order) Timeframe: 2 Days Facility: [facility] - Location: Physical Therapy Ordered By: Joselo Cuellar Referrals: [facility] ([facility]) [Outside] (Your information has been sent to [facility] to see if they can provide home health services. They will check with your insurance to make sure they are in network. If they are in network, they will begin services likely on . If you have any questions or concerns, please call them at the phone number provided.) Fe Swann MD [Physician] - 1 week Ilana Barroso [Primary Care Provider] - 4-7 days (L hip fracture, tachycardia, hypoxia) Discharge Diet: Advance as tolerated and Usual diet Discharge Activity: Limit activity as instructed, Use walker/crutches as instructed, As per PT/OT instructions and Return to work/school after cleared by PCP/Specialist Patient Instructions: Alcohol Abuse, Metoprolol (By mouth), Oxycodone/Acetaminophen (By mouth), Enoxaparin (Injection), Celecoxib (By mouth), Hypertension, How to Stop Smoking (DC), Benign Prostatic Hypertrophy (DC), COPD Stoplight Activity Restrictions/Additional Instructions: Weightbearing to be partial until follow-up in the office Cover wounds as needed. Please go to ER if you experience any concerning symptoms including severe shortness of breath, chest pain, fainting, bleeding, severe nausea or vomiting with inability to take food or drink, difficulty urinating, or any other. Due to urine retention you were started on prostate medication. Please have your primary care doctor follow-up and reassess. Please be aware this medication may act as a blood pressure medication, may also lead to your blood pressure decreasing while standing up. Please raise slowly from laying to sitting and sitting to standing. Sit down or lie down if you feel lightheaded. You are also started on medication to prevent blood clots. Please avoid any injury which may lead to bleeding. Please discuss with your primary care doctor regarding results of bone scan. Please stop smoking due to risks of various cancers, cardiovascular disease including heart attack, stroke. Please reduce the amount of alcohol you consume. Please follow-up with your primary care doctor to confirm resolution of squishing of the lung tissue in the right lower lung (atelectasis) which may require taking additional x-ray after about a month or so. Please discuss with your primary care doctor referral for repeat pulmonary function testing to closer assess for development of COPD. Please again discuss with your primary care doctor chronic fast heart rate. Please discuss consideration of referral to provider relations specialist. Please do not take indomethacin while you are taking Celebrex. 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
[2020-06-03 16:02] LABS: Coronavirus Lab Test PTC Negative
--- NOTE | 2020-06-03 17:56 | PC.RESP ---
Smoking Cessation information sent to patient.
== END 2020-06-02 17:20 | disposition home health service (06) | DRG 481 ==
LOC: ER 13:10 → OR 13:26 → MEDSURG 20:09
PROVIDERS: Family Medicine; Admitting Provider Specialist; PCP Registered Nurse; Visit Provider Internal Medicine
PROC: 0QS706Z Reposition Left Upper Femur with Intramedullary Internal Fixation Device, Open Approach (ICD-10-PCS; CPT 27245; principal; 2020-05-31 14:40)
DX: S72.142A Displaced intertrochanteric fracture of left femur, initial encounter for closed fracture (principal); J98.11 Atelectasis; X58.XXXA Exposure to other specified factors, initial encounter; I10 Essential (primary) hypertension; E03.9 Hypothyroidism, unspecified; F17.210 Nicotine dependence, cigarettes, uncomplicated; Z86.73 Personal history of transient ischemic attack (TIA), and cerebral infarction without residual deficits; F10.10 Alcohol abuse, uncomplicated; Z89.429 Acquired absence of other toe(s), unspecified side; J44.9 Chronic obstructive pulmonary disease, unspecified; K21.9 Gastro-esophageal reflux disease without esophagitis; E66.01 Morbid (severe) obesity due to excess calories; Z68.30 Body mass index [BMI] 30.0-30.9, adult; E87.6 Hypokalemia; R00.0 Tachycardia, unspecified; R33.9 Retention of urine, unspecified; Z79.82 Long term (current) use of aspirin; R91.8 Other nonspecific abnormal finding of lung field
CPT/HCPCS: 12345; 36415; 36416; 51702; 51798; 71045; 71275; 73502; 73700; 76000; 80053; 80061; 82962; 84443; 85025; 85610; 85651; 85730; 87635; 88307; 93005; 96372; 96375; 97116; 97161; 97165; 97535; C1713; J0131; J0690; J1170; J1650; J2370; J2405; J2704; J2710; J3010; J3370; J3490; J7030; J7050; Q9967

== ENCOUNTER → 2020-06-10 15:49 | Outpatient (BNVA) | payer BC, SELFPAY | PROVIDERS: PCP Registered Nurse; Visit Provider Specialist | DX: S72.142A Displaced intertrochanteric fracture of left femur, initial encounter for closed fracture (principal) | CPT/HCPCS: 73502 ==

== ENCOUNTER 2020-06-17 13:41 | Outpatient (RCR) | payer BC, SELFPAY | END 2020-06-24 23:59 | disposition home or self-care (01) | LOC: SPT 13:41 | PROVIDERS: PCP Registered Nurse; Referring Provider Specialist; Visit Provider Specialist | DX: Z47.89 Encounter for other orthopedic aftercare (principal) | CPT/HCPCS: 97110; 97162 ==

== ENCOUNTER 2020-06-25 06:00 | Outpatient (RCR) | payer BC, SELFPAY | END 2020-07-25 23:59 | disposition home or self-care (01) | LOC: SPT 06:00 | PROVIDERS: PCP Registered Nurse; Referring Provider Specialist; Visit Provider Specialist | DX: Z47.1 Aftercare following joint replacement surgery (principal); Z96.642 Presence of left artificial hip joint | CPT/HCPCS: 97110 ==

== ENCOUNTER → 2020-07-10 14:48 | Outpatient (BNVA) | payer BC, SELFPAY | PROVIDERS: PCP Registered Nurse; Visit Provider Specialist | DX: S72.142A Displaced intertrochanteric fracture of left femur, initial encounter for closed fracture (principal) | CPT/HCPCS: 73502 ==

== ENCOUNTER 2020-07-16 13:33 | Observation (INO) | payer BC, SELFPAY ==
[2020-07-11 12:26] VITALS: BMI 28.4
--- NOTE | 2020-07-11 13:29 | ANES.PREANE2 ---
Pre-Anesthetic Assessment Pre-Anesthetic Assessment: Height/Weight: Height 1.96 m Weight 108.862 kg Preop Diagnosis: Failed ORIF left intertrochanteric hip fracture Proposed Procedure: Operation Date: 07/16/20 08:55 Proposed Procedures p Total Hip Arthroplasty [id number] S72.142A(Left) - Fe Swann MD s Hardware Removal Hip Screw(Left) - Fe Swann MD Was Beta Nasra taken within 24 hours: N/A Social: Social History: Alcohol (daily) and Tobacco Exam: Pre-Anes Outpt Exam: alert, oriented x 3, clear to auscultation bilaterally and regular rate & rhythm Airway: Submandibular: WNL Cervical ROM: WNL MP: 2 Additional comments: bottom plate History/ROS: No significant history except as noted Pulmonary: Pulmonary: COPD CV/HEM: CV/HEM: HTN Comments: sinus tach : : None reported Hepatic: Hepatic: None reported GI: GI: GERD Metabolic: Metabolic: Thyroid Musc/skel: Musc/skel: None reported Neuropsych: Neuropsych: TIA (resolved) Anesthetic Plan: ASA status: 2 Anesthesia: Anesthesia Evaluation and General PFSH Anesthesia PFSH: Medical History Daily consumption of alcohol Fracture of hip HTN (hypertension) Hypothyroidism Left acetabular fracture Smoking addiction TIA (transient ischemic attack) Surgical History Amputation, toe, traumatic With lawnmower in childhood H/O shoulder surgery Family History Other Diabetes Social History Smoking and tobacco status: current some day smoker cigarettes [ Other cigarette details: Occasionally, once every several weeks ] Alcohol intake: current Lives independently: Yes Household members: significant other Marital status: Single Marital status details: Fiance Current occupational status: employed 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
[2020-07-11 13:31] LABS: Alanine Aminotransferase 20 U/L (0-41); Albumin Level 4.4 g/dL (3.5-5.2); Alkaline Phosphatase 143 IU/L (40-130); Aspartate Amino Transferase 27 U/L (0-40); Blood Urea Nitrogen 11 mg/dL (6-20); Calcium 9.8 mg/dL (8.5-10.5); Carbon Dioxide 23 mmol/L (22-29); Chloride 98 mmol/L (98-107); Glomerular Filtration Rate 139.9 mL/min (90-130); Glucose 103 mg/dL (65-115); Osmolality Calculated 278 mOsm/kg (285-295); Sodium 134 mmol/L (136-145); Total Protein 7.4 g/dL (6.6-8.7)
[2020-07-11 13:34] LABS: Basophils # 0.1 10^3/uL (0.0-0.1); Eosinophils # 0.2 10^3/uL (0.0-0.8); Eosinophils % 1.8 %; Hemoglobin 16.6 g/dL (11.7-16.6); Lymphocytes # 1.9 10^3/uL (0.8-4.8); Lymphocytes % 19.8 %; Mean Corpuscular HGB Conc 34.6 g/dL (30.0-36.0); Mean Corpuscular Hemoglobin 36.6 pg (28.0-34.0); Mean Corpuscular Volume 105.7 fL (80-94); Mean Platelet Volume 9.6 fL (7.4-10.4); Monocytes % 10.7 %; Neutrophils # 6.29 10^3/uL (1.8-7.7); Neutrophils % 66.5 %; Nucleated Red Blood Cells % 0 %; Platelet Count 273 10^3/cmm (130-400); Red Blood Count 4.54 10^6/uL (4.1-5.3); Red Cell Distribution Width 12.1 % (12.1-15.1); White Blood Count 9.5 10^3/uL (4.0-10.0)
[2020-07-11 14:34] LABS: Bilirubin Urine 1+ (Negative); Blood Urine Neg (Negative); Glucose Urine UA Norm (Normal); Nitrate Urine Negative (Negative); Protein Urine Trace (Negative); Specific Gravity, Urine 1.025 (1.005-1.030); Urine Appearance Clear (CLEAR); Urine Color Dark Yellow (Yellow); Urobilinogen Urine 1 mg/dL (Negative)
[2020-07-11 14:35] LABS: Add Urine Culture? No; Add Urine Microscopic? YES; Bacteria Urine 1+ /hpf; Ketones Urine 1+ (Negative); Leukocyte Esterase Urine Negative (Negative); Mucus Urine 3+ /hpf; RBC Urine 0-4 /hpf (0-2); Squamous Epithelial Cell Urine 0-4 /hpf (0-5); Uric Acid Crystals Urine 15-25 /hpf
[2020-07-16] VITALS (26 sets, daily range): BP systolic 132–168; BP diastolic 92–126; PULSE 85–120; RESP 11–20; TEMP 36.4–37.1; O2SAT 92–99
--- NOTE | 2020-07-16 09:05 | P.HPUD_ITS ---
Surgery/Procedure H&P Update DATE OF PROCEDURE: July 16, 2020 DATE H&P PERFORMED: 07/10/20 H&P UPDATE INFORMATION: I have reviewed H&P completed within last 30 days, No changes to prior documentation and H&P is in [facility] [place] [place] EMR on date indicated PREOP DIAGNOSIS: Failed ORIF left intertrochanteric hip fracture PLANNED PROCEDURE: Operation Date: 07/16/20 09:45 Proposed Procedures p Total Hip Arthroplasty [id number] S72.142A(Left) - Fe Swann MD s Hardware Removal Hip Screw(Left) - Fe Swann MD Related Problem List Diagnoses (1) Closed intertrochanteric fracture of left hip: Qualifiers: Encounter type: subsequent encounter Fracture alignment: displaced Fracture healing: with nonunion Qualified Code(s): S72.142K - Displaced intertrochanteric fracture of left femur, subsequent encounter for closed fracture with nonunion (2) Status post hip surgery: (3) Painful orthopaedic hardware: (4) Closed intertrochanteric fracture of femur with nonunion: Qualifiers: Fracture alignment: displaced Laterality: left Qualified Code(s): S72.142K - Displaced intertrochanteric fracture of left femur, subsequent encounter for closed fracture with nonunion
[2020-07-16] MEDS: sodium chloride 0.9% 1,000 ML 30 ML IV (09:21)
[2020-07-16] MEDS: CELEcoxib 200 mg Capsule 400 MG PO (09:22)
[2020-07-16] MEDS: vancomycin 1,000 MG in sodium chloride 0.9% 250 ML 250 MG IV (09:30)
--- NOTE | 2020-07-16 10:37 | SUR.OPER ---
Family Notified Of Patient's Status Via Phone.
[2020-07-16] MEDS: ceFAZolin 1,000 mg SDV 1000 MG IRRIGATION (10:47)
[2020-07-16] MEDS: vancomycin 1,000 MG SDV 1000 MG XX (10:47)
--- NOTE | 2020-07-16 11:49 | SUR.OPER ---
Family Notified Of Patient's Status Via Phone.
[2020-07-16] MEDS: labetalol 5 mg/mL SDV 20mL IVP ×4 (14:00→14:25)
--- NOTE | 2020-07-16 14:02 | XRR_ITS ---
PROCEDURE INFORMATION: Exam: XR Pelvis Exam date and time: 07/16/2020 2:10 PM Age: 55 years old Clinical indication: Device placement; Other: Post op hip revision; Prior surgery; Surgery date: Post-operative (0-2 days); Surgery type: Displaced intertrochanteric fracture of left femur; Additional info: Status post revision hip TECHNIQUE: Imaging protocol: XR pelvis. Views: 1 or 2 view. COMPARISON: CR XR hip LT 2-3V wo/w pel* [id number] 07/10/2020 2:55 PM FINDINGS: Bones/joints: There is metallic hip arthroplasty seen in the left hip show showing evidence of revision since prior examination. The left femoral head and neck have been resected and the arthroplasty has been exchanged. No acute fracture. The bones are otherwise unremarkable Soft tissues: surgical soft tissue changes are seen in the lateral left hip XR/XR pelvis 1-2V* [id number] IMPRESSION: 1. Evidence of revision of previously noted left hip arthroplasty. 2. No acute bone abnormality. 3. Surgical soft tissue changes left hip
--- NOTE | 2020-07-16 14:03 | PM.OP ---
Operative Report Date of procedure: July 16, 2020 Pre-op Diagnosis: Failed ORIF left intertrochanteric hip fracture with nonunion Post-op diagnosis: same Post-op Findings: Atrophic nonunion left femoral neck with complete loss of fixation of the femoral head lag screw from the gamma nail. Procedure Done: Left hip removal of trochanteric gamma nail, revision hip arthroplasty utilizing the anabaptism modular revision hip system Implants: Jose anabaptism modular 155 mm x 21 mm distal femoral stem with a proximal calcar replacement size 27 mm +0 mm. Head component included a 51 mm x 28 mm inner diameter bipolar universal femoral head with a 28 mm +0 femoral head. Specimens removed/disposition: Femoral head sent for pathology, microscopic Pathology: other (Femoral head for microscopic) Surgeon: Fe Swann Installation Service Representative: [facility] OR technicians Anesthesia: General (Intubated, ASA 2) Estimated blood loss (mL): 1,100 IV fluids (mL): 2,100 Urine output (mL): 200 Complications: None Findings: Nonunion with atrophic characteristics. Erosion from the lag screw into the femoral head. Evidence of new fractures. Condition: stable Disposition: floor Brief History: This 55-year-old gentleman presented in early May with complaints of hip pain and subsequent fracture without trauma. At that time, the patient underwent a trochanteric nail and bone marrow reamings were sent to pathology. These reamings were negative for anything other than bone reamings. Unfortunately, the patient went on to a nonunion. He has had further fractures to this area as well. He has had severe pain and shortening. The patient presents today for definitive treatment in the form of a revision hip arthroplasty with removal of hardware. Procedure: The patient was brought to the operating theater, and after undergoing adequate general anesthesia, intubated, ASA 2, he was transferred to the operating room table. The patient was placed in the full lateral position and held in place with the pegboard. Patient's left lower extremity was draped free and was subsequently prepped and further draped free. A surgical pause was performed prior to commencement of the surgical procedure. During the surgical pause, we confirmed the site and side of surgery as well as availability of equipment. Additionally, we confirmed preoperative surgical markings. X-rays are also reviewed during this time. Patient received vancomycin 1 g preoperatively as well. The patient's previous incision for placement of his gamma nail were marked prior to draping. These were evaluated and were found to have no evidence of infection. The initial incision incorporated the proximal portion of this incision with a deviation posterior to allow access to the hip joint. Also, the distal screw hole was marked and this incision was used for removal of the distal screw prior to hardware removal. Following the surgical pause, the area over the distal screw was opened. We were able to dissected down onto the lateral cortex of the bone. I was able to palpate the screw. This screw was removed uneventfully. The wound was then irrigated with closure later in the surgical procedure. Attention was then directed to the incision for revision hip arthroplasty as well as removal of the gamma nail. An incision was made centering over the greater trochanter continuing proximally and distally as necessary to allow access to the hip joint. The incision varied from typical total hip incision as we followed the patient's proximal gamma incision and then curved posteriorly. Also, we had more distal extension to allow us access to the lag screw. Dissection continued through skin and soft tissue using scalpel. Hemostasis was obtained using electrocautery. Tensor fascia louis was identified and incised longitudinally. Sciatic nerve was identified and protected throughout the surgical procedure. A Charnley U retractor was placed with care being taken to protect the sciatic nerve during placement. The hip was internally rotated as much as possible. We also palpated more distally to determine the location of the lag screw. We had to remove the set screw, however, prior to lag screw removal. Secondary to significant shortening, the anatomy was quite distorted in the area. Piriformis muscle was then identified, tagged, and subsequently incised from the posterior aspect of the hip joint. The remaining short external rotators were also incised. These were then elevated off the capsule and the capsule was entered in a T-type fashion. Each side of the capsule was then tagged. Evaluation at this time demonstrated there was zoe nonunion with atrophic changes. The lag screw was visible through the fracture in the femoral neck. In fact, the lag screw dissociated from the femoral head during this process. Attention was directed to the greater trochanteric area so that we could enter the top of the gamma nail and remove the setscrew so that we could subsequently remove the lag screw and then the gamma nail. The removed, and subsequently the lag screw was removed and then the trochanteric nail. The femoral head was then removed from the acetabulum utilizing a corkscrew. It was subsequently measured. It measured 50 mm Femoral head trials were then placed into the acetabulum. The 51 mm femoral head gave much better stability than the 50 mm femoral head. Therefore, this was chosen as the appropriate sized femoral head. Femoral trimmer and borer machine operator was then placed and attention was directed to the proximal femur. Previously, the box chisel had been utilized to access the proximal portion of the trochanteric nail. This allowed us access to the setscrew prior to lag screw removal. We were also able to remove the trochanteric nail from this area. A proximal reamer was passed to widen the area into the greater trochanter. A canal finder was then passed. Sequential reaming was accomplished. With extreme difficulty, we were able to ream to a size 21 mm diameter femoral stem. At this point, the actual femoral stem was placed into position. The jogging system was placed onto this to ream for the proximal portion of the calcar replacement. We reamed to a 27 mm diameter and then trial reductions were accomplished with a +0 mm height calcar replacement. Initially, the trial reduction was accomplished with a 51 mm universal head and a +0 mm offset femoral head. We were unable to reduce the hip. We therefore dropped to a -4 mm offset femoral head in the same universal head component. With this, leg lengths were mostly restored, and hip was noted to be quite stable, but after range of motion and stretching, we felt we could return to the +0 mm offset femoral head. The trial calcar was removed with rotation being noted. The actual calcar replacement portion was placed onto the distal femoral stem and tightened into position being torqued to appropriate level. As we felt that we could go to the +0 offset femoral head, this construct was assembled. This was placed onto the neck of the calcar replacement portion of the stem. The construct was reduced with a 51 mm femoral head. With this, we had excellent stability at 90 degrees of flexion with 80 degrees of internal rotation and 30 degrees of adduction. We also had stability to toe hang. Leg lengths were felt to be restored. The hip was irrigated. We then irrigated the hip further with 20 mL of Betadine mixed into 500 mL of normal saline. This was allowed to remain in the wound for approximately 3 minutes. It was then suctioned dry and irrigated with normal saline. This was suctioned dry again and closure was accomplished with 0 Vicryl in the capsular tissues followed by reattachment of the piriformis with 0 Vicryl. Additionally, the tensor was closed with 0 Vicryl in an interrupted fashion. Subcutaneous tissues were closed with a combination of 0 Vicryl and 2-0 Monocryl. Skin was closed with skin arturo. Vancomycin and Surgi-Herb was placed into the wound prior to closure. Xeroform gauze was then placed followed by ABDs and coverall. The patient was placed into an abduction pillow. The patient was returned the Recovery Room in satisfactory condition. There were no complications. The patient will be discharged to the floor for postoperative rehabilitation and pain management. Associated Problem List Diagnoses (1) Closed intertrochanteric fracture of femur with nonunion: Qualifiers: Fracture alignment: displaced Laterality: left Qualified Code(s): S72.142K - Displaced intertrochanteric fracture of left femur, subsequent encounter for closed fracture with nonunion (2) Painful orthopaedic hardware:
[2020-07-16] MEDS: oxyCODONE 5 mg IR Tab/Cap PO ×3 (15:26→23:42)
[2020-07-16] MEDS: chlorhexidine gluconate 0.12% Btl 473 mL 30 ML MUCOUS MEM ×2 (17:01→20:04)
[2020-07-16] MEDS: iron polysaccharide complex 150 mg Capsule PO (17:01)
[2020-07-16] MEDS: calcium carbonate 500 mg Chew Tablet 1000 MG PO (17:01)
[2020-07-16] MEDS: sennosides-docusate Tablet 2 TAB PO (17:01)
--- NOTE | 2020-07-16 17:55 | PM.CONSULT ---
Providers/Reason For Consult Consulting Physican/Specialty*: Dr. Swann Reason for Consult*: Management of hypertension and other medical conditions postoperatively Attending Physician: Fe Swann MD Primary Care Provider: CARLA Jacobo History of Present Illness History of Present Illness Dayne Hurst is a 55 year old male with past medical history of hypertension who broke his hip in the beginning of May. He underwent open reduction internal fixation at the time. Today he underwent hardware removal and revision arthroplasty by Dr. Swann due to nonunion. Currently he is in his room after the surgery. Awake alert and oriented. In no acute distress. Denies any uncontrolled pain. No chest pain, shortness of breath, cough, palpitations. No nausea or vomiting. No headache. He denies any history of coronary artery disease. Reports hypertension. He was prescribed metoprolol last time he was in the hospital. However never filled the prescription. Today his blood pressure was about 165 after the surgery. The patient denies diabetes. Denies Covid. Denies taking steroids. Reports tobacco smoking. Reports regular alcohol intake. Denies recreational drugs. Review of Systems General: Reports: 10 or more systems reviewed and unremarkable except in HPI and below Narrative: Is a very small spot on the left chest with mild hyperemia about 1 inch in diameter without surrounding swelling or edema. The area is tender to touch. Meds/Allergies Home Medications and Allergies Home Medications Medication Instructions Recorded Confirmed Last Taken Type aspirin [Aspirin Low Dose] 81 mg PO DAILY 05/31/20 07/11/20 05/31/20 History citalopram 40 mg PO DAILY 05/31/20 07/16/20 05/30/20 History levothyroxine 88 mcg PO DAILY 05/31/20 07/16/20 07/16/20 History magnesium 1 tab PO DAILY 05/31/20 07/11/20 Unknown History omeprazole 20 mg PO DAILY 05/31/20 07/16/20 07/16/20 History Allergies Allergy/AdvReac Type Severity Reaction Status Date / Time No Known Allergies Allergy Verified 07/11/20 12:33 Current Medications Current Medications Generic Name Dose Route Start Last Admin Trade Name Freq PRN Reason Stop Dose Admin Calcium Carbonate 1,000 mg 07/16/20 18:00 07/16/20 17:01 Calcium Carbonate 500 Mg Chew Tablet PO 1,000 mg BID KEVIN Administration Chlorhexidine Gluconate 30 ml 07/16/20 17:00 07/16/20 17:01 Chlorhexidine Gluconate 0.12% Btl 473 Ml MUCOUS MEM 30 ml QID KEVIN Administration Acetaminophen 1,000 mg in 100 mls @ 400 mls/hr 07/16/20 17:30 07/16/20 16:50 Ofirmev IV 07/17/20 09:44 400 mls/hr Q8H KEVIN Administration Mupirocin 1 applic 07/16/20 18:00 07/16/20 17:03 Mupirocin Oint 22 Gm NASAL 07/21/20 17:59 Not Given BID KEVIN Oxycodone HCl 5 mg 07/16/20 15:05 07/16/20 15:26 Oxycodone 5 Mg Ir Tab/Cap PO 5 mg Q4H PRN Administration MODERATE PAIN Polysaccharide Iron Complex 150 mg 07/16/20 18:00 07/16/20 17:01 Iron Polysaccharide Complex 150 Mg Capsule PO 150 mg BIDWM KEVIN Administration Senna/Docusate Sodium 2 tab 07/16/20 18:00 07/16/20 17:01 Sennosides-Docusate Tablet PO 2 tab BID KEVIN Administration PFSH Acute PFSH: Medical History (Updated 07/16/20 @ 09:06 by Fe Swann MD) Daily consumption of alcohol Fracture of hip HTN (hypertension) Hypothyroidism Left acetabular fracture Smoking addiction TIA (transient ischemic attack) Surgical History Amputation, toe, traumatic With lawnmower in childhood H/O shoulder surgery Family History Other Diabetes Social History Smoking and tobacco status: current some day smoker cigarettes [ Other cigarette details: Occasionally, once every several weeks ] Alcohol intake: current Lives independently: Yes Household members: significant other Marital status: Single Marital status details: Fiance Current occupational status: employed Current occupation: [employer] Vitals/I&O/Wt Last Vital Signs Temp 97.8 F 07/16/20 16:55 Pulse 99 07/16/20 16:55 Resp 18 07/16/20 16:55 BP 149/105 07/16/20 16:55 Pulse Ox 93 07/16/20 16:55 07/16/20 07/16/20 07/16/20 06:59 14:59 22:59 Intake Total 1370 / 1370 Output Total 1500 / 1500 Balance -130 / -130 Physical Exam Narrative: EXAM NARRATIVE: Awake alert oriented. No acute distress. Mood and affect are appropriate. Responses are adequate. Skin is warm and dry. Moist extremities. Neck supple. No JVD Normal speech. Eyes PERRLA, extraocular muscles are intact Lungs are clear bilaterally. No respiratory distress Heart S1, S2, regular Abdomen soft, obese, nontender, bowel sounds are present Extremities no edema cyanosis or calf tenderness bilaterally. Urinary Catheter Management^: F: Cath Placed During This Visit: yes Urinary Catheter Date of Insertion: 07/16/20 Urinary Catheter Time of Insertion: 10:00 A&P Additional A&P Information 55-year-old male who underwent revision hip arthroplasty by Dr. Swann due to nonunion. We will continue pain management and physical therapy. We will wait for the pathology report. DVT prophylaxis. Currently on aspirin. Management of this problem per Dr. Swann. Hypertension. Mild. Pain and stress could contribute to blood pressure elevation. We will monitor him closely. Will order metoprolol 25 mg p.o. twice daily. Will order as needed medications. Tobacco abuse. Counseling is provided. I explained to him that smoking and tobacco are a risk factor for delayed healing. He verbalized understanding and agreement. EtOH. The patient reports drinking on regular basis. We will start him on vitamin replacement and CIWA protocol. I will also order Librium with hold parameters for sedation. Macrocytosis. Most likely due to alcohol. Will check vitamin B12 level. Will replace if it is decreased. History of hypothyroidism. We will continue home Synthroid. His previous TSH was within normal range. Thank you very much for allowing me to participate in treatment of this patient. Coding Level of Care Code Acute Store Administrative Assistant for Fortunato Hernandez
--- NOTE | 2020-07-16 17:56 | PC.NURSE ---
Nurse notified of high bp, 159/121.
--- NOTE | 2020-07-16 17:58 | XRR_ITS ---
PROCEDURE INFORMATION: Exam: XR Chest, 1 View Exam date and time: 07/16/2020 6:24 PM Age: 55 years old Clinical indication: Chest pain; Type not specified; Additional info: Bruise on the chest and reproducible chest pain TECHNIQUE: Imaging protocol: XR of the chest Views: Frontal portable upright view of the chest. COMPARISON: CR XR chest 1V portable [id number] 05/31/2020 12:55 PM FINDINGS: Lungs: The lungs are clear bilaterally. The pulmonary vasculature is normal. Pleural space: No pleural effusion. No pneumothorax. Heart/Mediastinum: The heart is normal in size and contour. Mediastinum: Stable. Bones/joints: Stable. XR/XR chest 1V portable [id number] IMPRESSION: No acute cardiopulmonary abnormality identified.
[2020-07-16] MEDS: chlordiazePOXIDE 25 mg Capsule PO (18:25)
[2020-07-16] MEDS: metoprolol tartrate 25 mg Tablet PO (20:02)
[2020-07-16] MEDS: CELEcoxib 200 mg Capsule PO (20:02)
[2020-07-17] VITALS (8 sets, daily range): BP systolic 122–129; BP diastolic 86–93; PULSE 93–107; RESP 16–18; TEMP 36.6–36.9; O2SAT 90–94
[2020-07-17 00:38] LABS: Vitamin B12 984 pg/mL (232-1245)
[2020-07-17] MEDS: chlordiazePOXIDE 25 mg Capsule PO ×2 (01:23→10:46)
[2020-07-17] MEDS: oxyCODONE 5 mg IR Tab/Cap PO ×2 (03:49→08:27)
--- NOTE | 2020-07-17 06:45 | PC.NURSE ---
SHIFT SUMMARY Has had a good night. Very pleasant gentleman. Pain has been controlled with PO OXYIR given q4h. Has received scheduled IV Tylenol as well. Dressings to left lat hip/thigh dry & intact. Ice pack kept changed and to incision. Neurovascular checks to Left leg WNL. Good urine output via Fair catheter. Fair removed this am. ABD pillow in place. Had good response of BP after given pm dose of po Metoprolol
[2020-07-17] MEDS: aspirin 325 mg EC Tablet PO (08:26)
[2020-07-17] MEDS: cholecalciferol (vitamin D3) 1,000 unit Tablet 1000 UNIT PO (08:26)
[2020-07-17] MEDS: folic acid 1 mg Tablet PO (08:26)
[2020-07-17] MEDS: sennosides-docusate Tablet 2 TAB PO (08:26)
[2020-07-17] MEDS: pantoprazole DR 40 mg Tablet PO (08:27)
[2020-07-17] MEDS: levothyroxine 88 mcg Tablet PO (08:27)
[2020-07-17] MEDS: calcium carbonate 500 mg Chew Tablet 1000 MG PO (08:27)
[2020-07-17] MEDS: citalopram 20 mg Tablet 40 MG PO (08:27)
[2020-07-17] MEDS: thiamine 100 mg Tablet PO (08:27)
[2020-07-17] MEDS: iron polysaccharide complex 150 mg Capsule PO (08:27)
[2020-07-17] MEDS: multivitamin therapeutic Tablet 1 TAB PO (08:28)
[2020-07-17] MEDS: metoprolol tartrate 25 mg Tablet PO (09:44)
[2020-07-17] MEDS: mupirocin oint 22 gm 1 APPLIC NASAL (09:44)
[2020-07-17] MEDS: chlorhexidine gluconate 0.12% Btl 473 mL 30 ML MUCOUS MEM ×2 (09:45→13:52)
[2020-07-17] MEDS: CELEcoxib 200 mg Capsule PO (09:52)
[2020-07-17] MEDS: vancomycin 1,000 MG in sodium chloride 0.9% 250 ML 250 MG IV (10:43)
[2020-07-17 11:01] LABS: Basophils # 0.1 10^3/uL (0.0-0.1); Basophils % 0.4 %; Eosinophils # 0.1 10^3/uL (0.0-0.8); Eosinophils % 1.1 %; Hematocrit 42.3 % (42.0-52.0); Hemoglobin 14.1 g/dL (11.7-16.6); Lymphocytes # 1.2 10^3/uL (0.8-4.8); Lymphocytes % 10.6 %; Mean Corpuscular HGB Conc 33.3 g/dL (30.0-36.0); Mean Platelet Volume 9.4 fL (7.4-10.4); Monocytes # 1.2 10^3/uL (0.2-0.9); Monocytes % 10.4 %; Neutrophils # 8.62 10^3/uL (1.8-7.7); Neutrophils % 77.1 %; Nucleated Red Blood Cells % 0 %; Platelet Count 249 10^3/cmm (130-400); Red Blood Count 4.03 10^6/uL (4.1-5.3); White Blood Count 11.2 10^3/uL (4.0-10.0)
[2020-07-17 11:36] LABS: Magnesium 1.5 mg/dL (1.7-2.3)
[2020-07-17 11:42] LABS: Blood Urea Nitrogen 7 mg/dL (6-20); Calcium 8.8 mg/dL (8.5-10.5); Carbon Dioxide 21 mmol/L (22-29); Chloride 101 mmol/L (98-107); Glomerular Filtration Rate 139.9 mL/min (90-130); Glucose 113 mg/dL (65-115); Osmolality Calculated 279 mOsm/kg (285-295); Sodium 135 mmol/L (136-145)
--- NOTE | 2020-07-17 13:46 | P.PN_ITS ---
Subjective Subjective: Interval history: The patient is doing well. Denies any uncontrolled pain. Denies nausea or vomiting, chest pain, palpitations, shortness of breath, cough, fevers or chills. Medications: Reviewed: Yes Vitals/I&O/Wt Last Vital Signs Temp 98.4 F 07/17/20 11:32 Pulse 93 07/17/20 11:32 Resp 18 07/17/20 11:32 BP 129/93 07/17/20 11:32 Pulse Ox 92 07/17/20 11:32 07/16/20 07/17/20 07/17/20 22:59 06:59 14:59 Intake Total 100 / 1470 350 / 1820 240 / 240 Output Total 550 / 2050 700 / 2750 480 / 480 Balance -450 / -580 -350 / -930 -240 / -240 Physical Exam Narrative: EXAM NARRATIVE: Awake alert oriented. No acute distress. Mood and affect are appropriate. Responses are adequate. Skin is warm and dry. Moist extremities. Neck supple. No JVD Normal speech. Eyes PERRLA, extraocular muscles are intact Lungs are clear bilaterally. No respiratory distress Heart S1, S2, regular Abdomen soft, obese, nontender, bowel sounds are present Extremities no edema cyanosis or calf tenderness bilaterally. No tremors. Urinary Catheter Management^: F: Cath Placed During This Visit: yes, but has since been removed by the nurse Reason for Continuing Indwelling Catheter: Decision to DC Catheter Urinary Catheter Date of Insertion: 07/16/20 Urinary Catheter Time of Insertion: 10:00 Date Urinary Catheter Removed: 07/17/20 Time Urinary Catheter Discontinued: 06:21 Data : 07/17/20 10:38 07/17/20 10:38 Micro: Microbiology 07/16/20 10:21 Gram Stain - Final Hip - Left Wound Culture - Preliminary A&P Additional A&P Information 55-year-old male who underwent revision hip arthroplasty by Dr. Swann due to nonunion. Doing well postoperatively. Continue physical therapy pain management. DVT prophylaxis. Currently on aspirin. Management of this problem per Dr. Swann. Hypertension. Mild. Well-controlled. Can go home with metoprolol. Continue follow-up with the primary care physician for further adjustments to the medications. Tobacco abuse. Counseling is provided. I explained to him that smoking and tobacco are a risk factor for delayed healing. He verbalized understanding and agreement. EtOH. No evidence of withdrawal symptoms. If he goes home he should continue vitamin replacement therapy. Alcohol cessation should be coordinated with the primary care physician to avoid any withdrawal complications. Counseling was provided yesterday. Macrocytosis. Most likely due to alcohol. Management will be deferred to the primary care physician. History of hypothyroidism. Continue Synthroid. Overall the patient is doing well. He is okay from medical standpoint for discharge if he is cleared by Dr. Swann. Thank you very much for allowing me to participate in treatment of this patient. Attestations Medical Necessity Statement*: Possible discharge today Coding Level of Care Code Acute Parts Sales Manager for Fortunato Hernandez
--- NOTE | 2020-07-17 13:51 | P.DS_ITS ---
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 At the patient's initial injury, we had concerns as to why the hip fractured as he had no trauma. Pathology was sent and no abnormalities were identified from this pathology. The patient continued to shorten his lower extremity and went on to a zoe nonunion. The hardware was loosened. There were concerns that the lag screw would erode through the femoral head, and the patient was scheduled for semiurgent revision hip arthroplasty. Secondary to the loss of the calcar and femoral neck, he did require revision components. He was admitted and underwent same-day surgery for the following procedure: Left hip removal of trochanteric gamma nail, revision hip arthroplasty utilizing the rastafari modular revision hip system. Implants: Jose rastafari modular 155 mm x 21 mm distal femoral stem with a proximal calcar replacement size 27 mm +0 mm. Head component included a 51 mm x 28 mm inner diameter bipolar universal femoral head with a 28 mm +0 femoral head. The patient felt much better even last evening. He worked with physical therapy. Today, he has been independent. His wound is evaluated and it is benign. There is no evidence of infection. Dressings are removed. Steri-Strips are in place. There has been minimal to no bleeding. He is neurologically intact. There is no evidence of DVT. He did have some blood pressure issues and these were treated by the hospitalist team. These have resolved. The patient understands the importance of obtaining his blood pressure medications and these will be prescribed for him. He understands he will need to follow-up with his primary care regarding his blood pressure. The patient will be discharged home to follow-up with me in 2 weeks for repeat evaluation and x-ray. Physical Exam Const: COMMON NORMALS: no acute distress, average body habitus, patient oriented x3 and alert GENERAL APPEARANCE: cooperative and comfortable ORIENTATION/CONSCIOUSNESS: Yes awake HENMT: COMMON NORMALS: normocephalic and atraumatic HEAD & SCALP: normocephalic and atraumatic Eye: GENERAL EYE: appearance normal, both eyes and all related structures Chest: COMMONS NORMALS: normal inspection of the chest Resp: COMMON NORMALS: normal respiratory effort EFFORT & INSPECTION: Yes able to speak in complete sentences and Yes symmetric chest movement Extremity: LEFT LOWER EXTREMITY: Yes hip joint (The wound is benign. There is minimal swelling.) Left hip: Yes inspection (No erythema or evidence of infection.), Yes palpation (Minimal discomfort to palpation.), Yes ROM (Not evaluated.) and Yes neurovascular exam (Intact with no evidence of DVT.) Neuro: COMMON NORMALS: patient oriented x3 SENSORIUM/ORIENTATION: Yes alert Psych: COMMON NORMALS: mental status grossly normal APPEARANCE: Yes grossly normal ATTITUDE: Yes calm and Yes engaged ATTENTION/CONCENTRATION: Yes attention grossly intact Skin: COMMON NORMALS: no rashes or lesions noted GENERAL SKIN EXAM: no rashes or lesions noted Urinary Catheter Management^: F: Cath Placed During This Visit: yes, but has since been removed by the nurse Reason for Continuing Indwelling Catheter: Decision to DC Catheter Urinary Catheter Date of Insertion: 07/16/20 Urinary Catheter Time of Insertion: 10:00 Date Urinary Catheter Removed: 07/17/20 Time Urinary Catheter Discontinued: 06:21 Discharge Data Data Completed and Pending: Completed Studies During Hospitalization Category Date Time Status XR chest 1V brittnee ble [id number] Routine Exams 07/16/20 17:58 Completed XR pelvis 1-2V* 7 2170 Routine Exams 07/16/20 14:02 Completed Pending at discharge Category Date Time Status Anaerobic Culture Routine Lab 07/16/20 10:21 Results Complete Blood Co unt w/Auto AM LABS Lab 07/18/20 04:00 Ordered Complete Blood Co unt w/Auto AM LABS Lab 07/18/20 04:00 Ordered Complete Blood Co unt w/Auto AM LABS Lab 07/19/20 04:00 Ordered Magnesium AM LABS Lab 07/18/20 04:00 Ordered Renal Function Pa joe AM LABS Lab 07/17/20 10:38 Received Renal Function Pa joe AM LABS Lab 07/18/20 04:00 Ordered Total Protein Laura ctrophoresis AM LA BS Lab 07/17/20 10:38 Received Wound Culture and Gram Stain Routin e Lab 07/16/20 10:21 Results Lab Consult [PTH] Routine Pth 07/16/20 14:26 Uncollected Pathology: Surgic al [PTH] Routine Pth 07/16/20 13:28 Received Labs from last 24 hours 07/17/20 07/17/20 07/17/20 10:38 10:38 10:38 WBC RBC Hgb Hct MCV MCH MCHC RDW Plt Count MPV Neut % (Auto) Lymph % (Auto) Major % (Auto) Eos % (Auto) Baso % (Auto) Neut # (Auto) Lymph # (Auto) Major # (Auto) Eos # (Auto) Baso # (Auto) Nucleated RBC % (a uto) Nucleated RBCs # Sodium Pending Potassium Pending Chloride Pending Carbon Dioxide Pending Anion Gap Pending BUN Pending Creatinine Pending GFR Calculation Pending Glucose Pending Calculated Osmolal ity Calcium Pending Phosphorus Pending Magnesium 1.5 L Total Protein Pending Albumin Pending Pending Thmcy-8-Oiefaslis Pending Vwimm-2-Yvazlhrts Pending Wtwm-0-Yvphxbfw Pending Qkiv-8-Nikiaujl Pending Gamma Globulins Pending Abnorm Protein Ban d 1 Pending Vitamin B12 U Abnormal Prot Ba nd 2 Pending U Abnormal Prot Ba nd 3 Pending Pro Electrophoresi s Int Pending 07/17/20 07/17/20 07/16/20 10:38 10:38 20:29 WBC 11.2 H RBC 4.03 L Hgb 14.1 Hct 42.3 MCV 105.0 H MCH 35.0 H MCHC 33.3 RDW 15.0 Plt Count 249 MPV 9.4 Neut % (Auto) 77.1 Lymph % (Auto) 10.6 Major % (Auto) 10.4 Eos % (Auto) 1.1 Baso % (Auto) 0.4 Neut # (Auto) 8.62 H Lymph # (Auto) 1.2 Major # (Auto) 1.2 H Eos # (Auto) 0.1 Baso # (Auto) 0.1 Nucleated RBC % (a uto) 0 Nucleated RBCs # 0.0 Sodium 135 L Potassium 4.0 Chloride 101 Carbon Dioxide 21 L Anion Gap 17.0 BUN 7 Creatinine 0.6 L GFR Calculation 139.9 H Glucose 113 Calculated Osmolal ity 279 L Calcium 8.8 Phosphorus Magnesium Total Protein Albumin Abuqh-1-Xeqridzsu Isftj-9-Oupsxpbha Cgcb-1-Ayhdfueq Lepk-9-Alkhkujq Gamma Globulins Abnorm Protein Ban d 1 Vitamin B12 984 U Abnormal Prot Ba nd 2 U Abnormal Prot Ba nd 3 Pro Electrophoresi s Int Vitals: Last Vital Signs Temp 98.4 F 07/17/20 11:32 Pulse 93 07/17/20 11:32 Resp 18 07/17/20 11:32 BP 129/93 07/17/20 11:32 Pulse Ox 92 07/17/20 11:32 Discharge Plan Discharge Patient Disposition: Home Health Service Condition: Stable Prescriptions: New oxycodone 5 mg Tablet 5 mg PO Q4H PRN (Reason: Moderate Pain) Qty: 30 RF: 0 celecoxib 200 mg Capsule 200 mg PO Q12H Qty: 60 RF: 0 multivitamin with folic acid [Thera] 400 mcg Tablet 1 tab PO DAILY Qty: 30 RF: 0 folic acid 1 mg Tablet 1 mg PO DAILY Qty: 30 RF: 0 acetaminophen 500 mg Tablet 1,000 mg PO Q8H 15 Days Qty: 90 RF: 0 aspirin 325 mg Tablet,Delayed Release (Dr/Ec) 325 mg PO DAILY 30 Days Qty: 0 RF: 0 thiamine mononitrate (vit B1) [Vitamin B-1 (mononitrate)] 100 mg Tablet 100 mg PO DAILY Qty: 30 RF: 0 metoprolol tartrate 25 mg Tablet 25 mg PO BID@0900,2100 Qty: 60 RF: 0 Continued citalopram 40 mg tablet 40 mg PO DAILY RF: 0 levothyroxine 88 mcg tablet 88 mcg PO DAILY RF: 0 omeprazole 20 mg Tablet,Delayed Release (Dr/Ec) 20 mg PO DAILY RF: 0 magnesium 1 tab PO DAILY RF: 0 Held aspirin [Aspirin Low Dose] 81 mg Tablet,Delayed Release (Dr/Ec) 81 mg PO DAILY RF: 0 Hold Instructions: Resume on 08/14/20. Continue full dose aspirin for 1 month then return to your low-dose aspirin. Discharge Orders: Discharge Order (Routine); Ordered 07/17/20 Ordered By: Fe Swann Referrals: Fe Swann MD [Physician] - 08/05/20 10:45 am Discharge Diet: Advance as tolerated and Usual diet Discharge Activity: Limit activity as instructed, Use walker/crutches as instructed and As per PT/OT instructions Activity Restrictions/Additional Instructions: Weightbearing as tolerated with posterior hip precautions. Wear the abduction pillow until you are seen in the office. Maintain hip precautions. Maintain clear dressing over wound until it peels off. 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
--- NOTE | 2020-07-17 16:30 | PC.NURSE ---
pt iv taken out and intact. pt discharge instructions explained and questions answered. pt taken to surgical services entrance via wheelchair.
--- NOTE | 2020-07-17 17:27 | PC.RESP ---
Smoking Cessation information sent to patient.
[2020-07-18 00:16] LABS: Albumin Level 3.3 g/dL (3.5-5.2); Blood Urea Nitrogen 8 mg/dL (6-20); Calcium 9.2 mg/dL (8.5-10.5); Carbon Dioxide 19 mmol/L (22-29); Chloride 101 mmol/L (98-107); Glomerular Filtration Rate 139.9 mL/min (90-130); Glucose 101 mg/dL (65-115); Phosphorus 3.1 mg/dL (2.5-4.5); Sodium 135 mmol/L (136-145)
[2020-07-18 00:20] LABS: Anion Gap 19.2 (5-19); Potassium 4.2 mmol/L (3.5-5.1)
[2020-07-18 07:57] LABS: PROTEIN, TOTAL 5.5 g/dL (6.1-8.1)
[2020-07-18 15:32] LABS: ALPHA 1 GLOBULIN 0.4 g/dL (0.2-0.3); ALPHA 2 GLOBULIN 0.9 g/dL (0.5-0.9); BETA 1 GLOBULIN 0.3 g/dL (0.4-0.6); BETA 2 GLOBULIN 0.3 g/dL (0.2-0.5); GAMMA GLOBULIN 0.6 g/dL (0.8-1.7)
== END 2020-07-17 16:33 | disposition home health service (06) ==
LOC: MEDSURG 13:49
PROVIDERS: Internal Medicine; Admitting Provider Specialist; PCP Nurse Practitioner; Visit Provider Specialist
PROC: (CPT 20680; 2020-07-16 09:30)
PROC: (CPT 27125; 2020-07-16 09:30)
DX: S72.142K Displaced intertrochanteric fracture of left femur, subsequent encounter for closed fracture with nonunion (principal); X58.XXXD Exposure to other specified factors, subsequent encounter; T84.84XA Pain due to internal orthopedic prosthetic devices, implants and grafts, initial encounter; Z79.82 Long term (current) use of aspirin; I10 Essential (primary) hypertension; F17.210 Nicotine dependence, cigarettes, uncomplicated; D75.89 Other specified diseases of blood and blood-forming organs; E03.9 Hypothyroidism, unspecified; J44.9 Chronic obstructive pulmonary disease, unspecified; K21.9 Gastro-esophageal reflux disease without esophagitis; Z86.73 Personal history of transient ischemic attack (TIA), and cerebral infarction without residual deficits; Z83.3 Family history of diabetes mellitus
CPT/HCPCS: 20680; 27134; 12345; 36415; 51702; 71045; 72170; 80048; 80053; 80069; 81001; 82607; 83735; 84155; 84165; 85025; 86850; 86900; 86920; 87070; 87075; 87205; 87635; 88304; 96374; 97161; 97165; 97530; C1713; C1776; G0378; J0131; J0690; J1170; J2370; J2704; J3010; J3370; J3490; J7030; J7050; P9016

== ENCOUNTER 2020-07-26 06:00 | Outpatient (RCR) | payer BC, SELFPAY | END 2020-08-25 23:59 | disposition home or self-care (01) | LOC: SPT 06:00 | PROVIDERS: PCP Nurse Practitioner; Referring Provider Specialist; Visit Provider Specialist | DX: Z47.89 Encounter for other orthopedic aftercare (principal) | CPT/HCPCS: 97110 ==

== ENCOUNTER → 2020-07-31 16:03 | Outpatient (BNVA) | payer BC, SELFPAY | PROVIDERS: PCP Nurse Practitioner; Visit Provider Specialist | DX: S72.142K Displaced intertrochanteric fracture of left femur, subsequent encounter for closed fracture with nonunion (principal) | CPT/HCPCS: 73502 ==

== ENCOUNTER → 2020-11-06 13:44 | Outpatient (BNVA) | payer SELFPAY | PROVIDERS: PCP Nurse Practitioner; Visit Provider Specialist | DX: S72.142K Displaced intertrochanteric fracture of left femur, subsequent encounter for closed fracture with nonunion (principal) | CPT/HCPCS: 73502 ==

== ENCOUNTER 2021-02-19 14:25 | Outpatient (CLI) | payer SELFPAY ==
--- NOTE | 2021-02-19 14:31 | USCV_ITS ---
AsifDayne newell Age: 56 Gender: M : 1965 Exam Date: 02/19/2021 14:50 Ordering Phys: Ilana Barroso Technologist: Daja Son Exam Location: [facility] Indication: RLE PAIN AND SWELLING HISTORY: Lower extremity swelling. Lower extremity pain. PROCEDURES: Venous duplex imaging was performed in only the right lower extremity. The following venous structures were evaluated: common femoral vein, profunda vein, proximal portion of the greater saphenous vein, superficial femoral vein, and the popliteal vein. In addition, the posterior tibial and peroneal trunk were evaluated. Serial compression, augmentation maneuvers, and spectral Doppler flow evaluation were performed. FINDINGS: No evidence of DVT seen in any vessel visualized at this time. CONCLUSIONS No evidence of right lower extremity DVT. Vasquez Mckenzie MD (Electronically Signed) Final Date: 19 February 2021 15:45 S
== END 2021-02-19 14:26 | disposition home or self-care (01) ==
PROVIDERS: PCP Registered Nurse; Visit Provider Registered Nurse
DX: M79.604 Pain in right leg (principal); M79.89 Other specified soft tissue disorders
CPT/HCPCS: 93971

== ENCOUNTER 2022-12-08 19:30 | Observation (INO) | payer SELFPAY ==
[2022-12-08 20:26] VITALS: BMI 33.3
[2022-12-08 20:30] VITALS: BP 163/120; PULSE 93; RESP 18; TEMP 36.7; O2SAT 95
[2022-12-08 20:35] LABS: Basophils # 0.1 10^3/uL (0.0-0.1); Basophils % 0.5 %; Eosinophils # 0.2 10^3/uL (0.0-0.8); Eosinophils % 1.2 %; Hematocrit 47.4 % (42.0-52.0); Lymphocytes # 2.1 10^3/uL (0.8-4.8); Lymphocytes % 13.8 %; Mean Corpuscular HGB Conc 33.8 g/dL (30.0-36.0); Mean Corpuscular Hemoglobin 32.2 pg (28.0-34.0); Mean Corpuscular Volume 95.4 fl (80-94); Mean Platelet Volume 9.5 fL (7.4-10.4); Monocytes # 1.6 10^3/uL (0.2-0.9); Monocytes % 10.5 %; Neutrophils # 11.41 10^3/uL (1.8-7.7); Neutrophils % 73.7 %; Nucleated Red Blood Cells % 0 %; Platelet Count 282 10^3/cmm (130-400); Red Blood Count 4.97 10^6/uL (4.1-5.3); Red Cell Distribution Width 13.7 % (12.1-15.1); White Blood Count 15.5 10^3/uL (4.0-10.0)
[2022-12-08 20:54] LABS: Alanine Aminotransferase 25 U/L (0-41); Albumin Level 4.4 g/dL (3.5-5.2); Alkaline Phosphatase 114 U/L (40-130); Anion Gap 20.7 (5-19); Aspartate Amino Transferase 26 U/L (0-40); Blood Urea Nitrogen 6 mg/dL (6-20); Calcium 9.3 mg/dL (8.5-10.5); Carbon Dioxide 23 mmol/L (22-29); Chloride 94 mmol/L (98-107); Globulin 3.4 g/dL (1.3-4.6); Glomerular Filtration Rate 138.9 mL/min (90-130); Glucose 99 mg/dL (65-115); Lipase 21 U/L (13-60); Osmolality Calculated 276 mOsm/kg (285-295); Potassium 3.7 mmol/L (3.5-5.1); Sodium 134 mmol/L (136-145); Total Bilirubin 1.4 mg/dL (0.15-1.2); Total Protein 7.8 g/dL (6.6-8.7)
--- NOTE | 2022-12-08 23:01 | CTR_ITS ---
PROCEDURE INFORMATION: Exam: CT Abdomen And Pelvis With Contrast Exam date and time: 12/08/2022 11:25 PM Age: 57 years old Clinical indication: Abdominal pain; Prior surgery; Surgery date: 6+ months; Surgery type: Left dez; Patient HX: C/O epigastric pain; Additional info: Abd pain TECHNIQUE: Imaging protocol: Computed tomography of the abdomen and pelvis with contrast. Radiation optimization: All CT scans at this facility use at least one of these dose optimization techniques: automated exposure control; mA and/or kV adjustment per patient size (includes targeted exams where dose is matched to clinical indication); or iterative reconstruction. Contrast material: OMNI 350; Contrast volume: 100 ml; Contrast route: INTRAVENOUS (IV); REPORTING DATA: Count of CT and Cardiac NM exams in prior 12 months: This patient has received 0 known CTs and 0 known cardiac nuclear medicine studies in the 12 months prior to the current study. COMPARISON: CR XR hip LT 2-3V wo/w pel* [id number] 11/06/2020 1:50 PM RADIATION DOSE METRICS: Total DLP (mGy-cm): 1182.57 FINDINGS: Lungs: Bilateral dependent atelectasis versus infiltrate. Coronary arteries: Coronary artery atherosclerotic calcifications. Liver: Hepatic steatosis. Gallbladder and bile ducts: Gallbladder wall calcification and cholelithiasis with minimal pericholecystic edema, consider further evaluation with ultrasound as clinically indicated. Pancreas: Normal. No ductal dilation. Spleen: Normal. No splenomegaly. Adrenal glands: Normal. No mass. Kidneys and ureters: Normal. No hydronephrosis. Stomach and bowel: Mild constipation. Appendix: No evidence of appendicitis. Intraperitoneal space: Unremarkable. No free air. No significant fluid collection. Vasculature: Unremarkable. No abdominal aortic aneurysm. Lymph nodes: Unremarkable. No enlarged lymph nodes. Urinary bladder: Unremarkable as visualized. Reproductive: Unremarkable as visualized. Bones/joints: Left arthroplasty changes. Soft tissues: Small bilateral right greater than left fat containing inguinal hernias without bowel. CT/CT abdomen pelvis w con* [id number] IMPRESSION: 1. Gallbladder wall calcification and cholelithiasis with minimal pericholecystic edema, consider further evaluation with ultrasound as clinically indicated. 2. Mild constipation. 3. Left arthroplasty changes. 4. Small bilateral right greater than left fat containing inguinal hernias without bowel. 5. Bilateral dependent atelectasis versus infiltrate. 6. Coronary artery atherosclerotic calcifications. 7. Hepatic steatosis.
[2022-12-08 23:13] VITALS: RESP 18
[2022-12-08] MEDS: morphine 4 mg/mL SDV 1 mL IVP (23:13)
[2022-12-08] MEDS: ondansetron 2 mg/ML SDV 2 mL 4 MG IVP (23:14)
--- NOTE | 2022-12-08 23:15 | W.ED.ABDPA2 ---
HPI - Abdominal Pain General: Chief Complaint: Abdominal Pain Stated Complaint: upper abd pain Time Seen by Provider: 12/08/22 22:36 Source: patient Mode of arrival: ambulatory Limitations: no limitations History of Present Illness: 57-year-old male states he been having right upper quadrant and low epigastric pain for 1 day. He states it is sharp in nature he rates his pain a 10 out of 10 currently it is very tender to touch as well he had some nausea denies any vomiting denies fevers. Denies any chest pain. Associated Symptoms: Denies chills, dysuria and fever(s) Review of Systems Const: Denies: fever(s) or chills ENMT: Denies: throat pain or dental pain Card: Denies: chest pain Resp: Denies: dyspnea GI: Reports: abdominal pain : Denies: dysuria Musc: Denies: neck pain or back pain Skin/Breast: Denies: rash Neuro: Denies: headache(s) PFS ED PFSH: Medical History (Updated 12/09/22 @ 01:45 by Shaun Ragland MD) Daily consumption of alcohol Fracture of hip HTN (hypertension) Hypothyroidism Left acetabular fracture Smoking addiction TIA (transient ischemic attack) Surgical History Amputation, toe, traumatic With lawnmower in childhood H/O shoulder surgery Family History Other Diabetes Social History Smoking and tobacco status: current some day smoker cigarettes [ Other cigarette details: Occasionally, once every several weeks] Alcohol intake: current Substance/Drug Use: never Lives independently: Yes Household members: significant other Marital status: Single Marital status details: Fiance Current occupational status: employed Current occupation: [employer] [facility] Physical Exam Const: COMMON NORMALS: no acute distress and patient oriented x3 HENMT: COMMON NORMALS: normocephalic and atraumatic HEAD & SCALP: normocephalic and atraumatic Eye: COMMON NORMALS: conjunctivae normal CONJUNCTIVA: Yes conjunctivae normal Neck/C-Spine: COMMON NORMALS: full ROM and supple Chest: COMMONS NORMALS: normal inspection of the chest and normal palpation of entire chest wall Resp: COMMON NORMALS: normal respiratory effort, No retractions, No use of accessory muscles and clear to auscultation bilaterally AUSCULTATION: clear to auscultation bilaterally Cardio: COMMON NORMALS: regular rate, regular rhythm and No murmurs present (Cardio) RATE: regular rate RHYTHM: regular rhythm GI: COMMON NORMALS: Normal to inspection, nondistended, normoactive bowel sounds present, Soft to palpation and no masses PALPATION: Yes Soft to palpation and Yes Tenderness to palpation present (GI) Details: RUQ OTHER: diffuse tenderness Extremity: COMMON NORMALS: normal to inspection and full ROM Neuro: COMMON NORMALS: patient oriented x3, moves all extremities and no focal motor deficits Psych: COMMON NORMALS: mental status grossly normal, Normal thought process present and cooperative THOUGHT PROCESS: Normal thought process present Skin: COMMON NORMALS: no rashes or lesions noted and no wounds GENERAL SKIN EXAM: no rashes or lesions noted Course Vital Signs: Vital signs: Vital Signs Temperature 98.0 F 12/08/22 20:30 Pulse Rate 94 12/08/22 23:19 Respiratory Rate 18 12/09/22 00:21 Blood Pressure 155/129 12/08/22 23:19 Pulse Oximetry 95 12/08/22 23:19 Oxygen Delivery Me thod Room Air 12/08/22 23:19 MDM - Abdominal Pain Medical Decision Making Patient presents with right upper abdominal pain he does have an elevated white count ultrasound shows gallstones with thickened gallbladder wall consistent with cholecystitis I spoke to surgeon on-call will admit on IV antibiotics Lab Data 12/08/22 20:25 12/08/22 20:25 Labs/Radiology: Radiology Impressions Abdomen/Pelvis CT 12/08/22 23:01 IMPRESSION: 1. Gallbladder wall calcification and cholelithiasis with minimal pericholecystic edema, consider further evaluation with ultrasound as clinically indicated. 2. Mild constipation. 3. Left arthroplasty changes. 4. Small bilateral right greater than left fat containing inguinal hernias without bowel. 5. Bilateral dependent atelectasis versus infiltrate. 6. Coronary artery atherosclerotic calcifications. 7. Hepatic steatosis. Laboratory Results WBC 15.5 10^3/uL (4.0-10.0) H 12/08/22 20:25 RBC 4.97 10^6/uL (4.1-5.3) 12/08/22 20:25 Hgb 16.0 g/dL (11.7-16.6) 12/08/22 20:25 Hct 47.4 % (42.0-52.0) 12/08/22 20:25 MCV 95.4 fl (80-94) H 12/08/22 20:25 MCH 32.2 pg (28.0-34.0) 12/08/22 20:25 MCHC 33.8 g/dL (30.0-36.0) 12/08/22 20:25 RDW 13.7 % (12.1-15.1) 12/08/22 20:25 Plt Count 282 10^3/cmm (130-400) 12/08/22 20:25 MPV 9.5 fL (7.4-10.4) 12/08/22 20:25 Neut % (Auto) 73.7 % 12/08/22 20:25 Lymph % (Auto) 13.8 % 12/08/22 20:25 [place] % (Auto) 10.5 % 12/08/22 20:25 Eos % (Auto) 1.2 % 12/08/22 20:25 Baso % (Auto) 0.5 % 12/08/22 20:25 Neut # (Auto) 11.41 10^3/uL (1.8-7.7) H 12/08/22 20:25 Lymph # (Auto) 2.1 10^3/uL (0.8-4.8) 12/08/22 20:25 [place] # (Auto) 1.6 10^3/uL (0.2-0.9) H 12/08/22 20:25 Eos # (Auto) 0.2 10^3/uL (0.0-0.8) 12/08/22 20:25 Baso # (Auto) 0.1 10^3/uL (0.0-0.1) 12/08/22 20:25 Nucleated RBC % (auto) 0 % 12/08/22: Nucleated RBCs # 0.0 /100WBC 12/08/22 20:25 Sodium 134 mmol/L (136-145) L 12/08/22 20:25 Potassium 3.7 mmol/L (3.5-5.1) 12/08/22 20:25 Chloride 94 mmol/L (98-107) L 12/08/22 20:25 Carbon Dioxide 23 mmol/L (22-29) 12/08/22 20:25 Anion Gap 20.7 (5-19) H 12/08/22 20:25 BUN 6 mg/dL (6-20) 12/08/22 20:25 Creatinine 0.6 mg/dL (0.7-1.2) L 12/08/22 20:25 GFR Calculation 138.9 mL/min (90-130) H 12/08/22 20:25 Glucose 99 mg/dL (65-115) 12/08/22 20:25 Calculated Osmolality 276 mOsm/kg (285-295) L 12/08/22 20:25 Calcium 9.3 mg/dL (8.5-10.5) 12/08/22 20:25 Total Bilirubin 1.4 mg/dL (0.15-1.2) H 12/08/22 20:25 AST 26 U/L (0-40) 12/08/22 20:25 ALT 25 U/L (0-41) 12/08/22 20:25 Alkaline Phosphatase 114 U/L (40-130) 12/08/22 20:25 Total Protein 7.8 g/dL (6.6-8.7) 12/08/22 20:25 Albumin 4.4 g/dL (3.5-5.2) 12/08/22 20:25 Globulin 3.4 g/dL (1.3-4.6) 12/08/22 20:25 Lipase 21 U/L (13-60) 12/08/22 20:25 Urine Color Yellow (Yellow) 12/09/22 00:05 Urine Appearance Clear (CLEAR) 12/09/22 00:05 Urine pH 8 (5-7) H 12/09/22 00:05 Ur Specific [place] 1.015 (1.005-1.030) 12/09/22 00:05 Urine Protein Neg (Negative) 12/09/22 00:05 Urine Glucose (UA) Norm (Normal) 12/09/22 00:05 Urine Ketones 1+ (Negative) H 12/09/22 00:05 Urine Blood Neg (Negative) 12/09/22 00:05 Urine Nitrate Negative (Negative) 12/09/22 00:05 Urine Bilirubin Neg (Negative) 12/09/22 00:05 Prot Sulfosalicylic Acd Negative (Negative) 12/09/22 00:05 Urine Urobilinogen Norm mg/dL (Negative) 12/09/22 00:05 Ur Leukocyte Esterase Negative (Negative) 12/09/22 00:05 Discharge Plan Discharge Patient Disposition: Admitted As Inpatient Clinical Impression: Acute calculous cholecystitis Condition: Stable Prescriptions: No Action celecoxib 200 mg capsule See Rx Instructions .ROUTE .COMPLEX Qty: 30 0RF Dose Instruction: TAKE 1 CAPSULE BY MOUTH EVERY 12 HOURS Rx Instructions: TAKE 1 CAPSULE BY MOUTH 1 time daily citalopram 40 mg tablet 40 mg PO DAILY aspirin [Manny Low Dose Aspirin] 81 mg Tablet,Delayed Release (Dr/Ec) 81 mg PO DAILY Hold Instructions: Resume on 08/14/20. Continue full dose aspirin for 1 month then return to your low-dose aspirin. levothyroxine 88 mcg tablet 88 mcg PO DAILY omeprazole 20 mg Tablet,Delayed Release (Dr/Ec) 20 mg PO DAILY magnesium 1 tab PO DAILY folic acid 1 mg Tablet 1 mg PO DAILY Qty: 30 0RF metoprolol tartrate 25 mg Tablet 25 mg PO BID@0900,2100 Qty: 60 0RF Vitamin B-1 (mononitrate) 100 mg Tablet 100 mg PO DAILY Qty: 30 0RF Thera 400 mcg Tablet 1 tab PO DAILY Qty: 30 0RF oxycodone 5 mg Tablet 5 mg PO Q4H PRN (Reason: Moderate Pain) Qty: 30 0RF Referrals: Shelly Morin FNP [Primary Care Provider] - Coding Level of Care Code ED Chaplain for Fortunato Hernandez
[2022-12-08 23:19] VITALS: BP 155/129; PULSE 94; RESP 18; O2SAT 95
[2022-12-08] MEDS: iohexol 350 mg/mL 500 mL Btl (per mL) IV (23:25)
[2022-12-09] VITALS (20 sets, daily range): BP systolic 114–153; BP diastolic 78–119; PULSE 94–104; RESP 16–20; TEMP 36.1–37.1; O2SAT 90–97; BMI 32.3
[2022-12-09 00:13] LABS: Add Urine Microscopic? NO; Charge for UA Resulting for Rev
[2022-12-09 00:20] LABS: Bilirubin Urine Neg (Negative); Blood Urine Neg (Negative); Glucose Urine UA Norm (Normal); Ketones Urine 1+ (Negative); Nitrate Urine Negative (Negative); Protein Urine Neg (Negative); Sulfosalicylic Acid Urine Negative (Negative); Urine Appearance Clear (CLEAR); Urine Color Yellow (Yellow); Urobilinogen Urine Norm (Negative); pH Urine 8 (5-7)
[2022-12-09 00:21] LABS: Leukocyte Esterase Urine Negative (Negative); Specific Gravity, Urine 1.015 (1.005-1.030)
[2022-12-09] MEDS: morphine 4 mg/mL SDV 1 mL IVP ×3 (00:21→09:29)
--- NOTE | 2022-12-09 00:35 | USR_ITS ---
PROCEDURE INFORMATION: Exam: US Abdomen, Limited; Right Upper Quadrant Exam date and time: 12/09/2022 1:06 AM Age: 57 years old Clinical indication: Abdominal pain; Other: Ruq pain TECHNIQUE: Imaging protocol: Real time ultrasound of the abdomen with image documentation. Limited exam focused on the right upper quadrant. COMPARISON: CT abdomen pelvis w con* [id number] 12/08/2022 11:25 PM FINDINGS: Liver: Negative for liver mass. Gallbladder: Cholelithiasis. Gallbladder wall is mildly thickened measuring 3.7 mm. No pericholecystic fluid collection. Biliary ducts: Normal. No stones. No dilation. Pancreas: Visualized pancreas is unremarkable. Right kidney: Normal. No mass. No hydronephrosis. Aorta: Abdominal aorta is nonaneurysmal. Inferior vena cava: Proximal IVC is normal. Intraperitoneal space: No focal intraperitoneal fluid collection. US/US gall bladder [id number] IMPRESSION: Cholelithiasis with mild gallbladder wall thickening. Acute cholecystitis suspected.
[2022-12-09] MEDS: piperacillin-tazobactam 3.375 GM in sodium chloride 0.9% (plus) 50 ML IV ×3 (02:14→19:28)
[2022-12-09] MEDS: labetalol 5 mg/mL SDV 20mL 10 MG IVP (02:14)
[2022-12-09] MEDS: hyDRALAzine 20 mg/mL INJ 1 mL 10 MG IVP (02:45)
[2022-12-09] MEDS: sodium chloride 0.9% 1,000 ML 100 ML IV ×2 (03:34→19:26)
[2022-12-09] MEDS: sodium chloride 0.9% 1,000 ML 30 ML IV (14:05)
--- NOTE | 2022-12-09 14:18 | ANES.PREANE2 ---
Pre-Anesthetic Assessment Height/Weight: Height 1.88 m Weight 114.396 kg Temp Pulse Resp BP Pulse Ox O2 Del Method O2 Flow Rate 97.9 F 104 H 18 140/108 90 Nasal Cannula 1 12/09/22 13:25 12/09/22 13:25 12/09/22 13:25 12/09/22 13:25 12/09/22 13:25 12/09/22 13:25 12/09/22 13:25 Operation Date: 12/09/22 12:50 Proposed Procedures p Laparoscopic Cholecystectomy(Not Applicable) - Denis Ridley DO Familial anesthetic complications: none Was Beta Nasra taken within 24 hours: N/A Was Clonidine taken within 24 hours: N/A Last intake: Intake Last Liquid Date 12/08/22 Last Liquid Time 17:00 Last Solid Date 12/07/22 Last Solid Time 08:00 Social No alcohol and No tobacco Exam alert, oriented x 3, clear to auscultation bilaterally and regular rate & rhythm Airway Mallampati: Class II Dentition: false Pulmonary Chronic Obstructive Pulmonary Disease CV/HEM Hypertension GI Gastroesophageal Reflux Disease Metabolic Hyperlipidemia and Morbid Obesity Neuropsych Transient Ischemic Attack Anesthetic Plan ASA status: 3 Anesthesia: General Risk of > 500 ml blood loss (7ml/kg in children): No Medications/Allergies Home Medications Medication Instructions Recorded Confirmed Last Taken Type aspirin 81 mg tablet,delayed 81 mg PO DAILY 05/31/20 12/09/22 05/31/20 History release (Manny Low Dose Aspirin) omeprazole 20 mg tablet,delayed 20 mg PO DAILY 05/31/20 12/09/22 07/16/20 History release multivitamin with folic acid 400 1 tab PO DAILY #30 tabs 07/17/20 12/09/22 Unknown Rx mcg tablet (Thera) atorvastatin 20 mg tablet 20 mg PO DAILY 12/09/22 12/09/22 Unknown History celecoxib 200 mg capsule 200 mg PO DAILY 12/09/22 12/09/22 Unknown History fluoxetine 40 mg capsule (Prozac) 80 mg PO DAILY 12/09/22 12/09/22 Unknown History furosemide 20 mg tablet (Lasix) 20 mg PO DAILY 12/09/22 12/09/22 Unknown History levothyroxine 75 mcg tablet 75 mcg PO DAILY 12/09/22 12/09/22 Unknown History potassium chloride 10 mEq 10 meq PO DAILY 12/09/22 12/09/22 Unknown History tablet,extended release propranolol 60 mg capsule,24 60 mg PO DAILY 12/09/22 12/09/22 Unknown History hr,extended release Allergies Allergy/AdvReac Type Severity Reaction Status Date / Time No Known Allergies Allergy Verified 11/06/20 14:05 Current Medications Generic Name Dose Route Start Last Admin Trade Name Freq PRN Reason Stop Dose Admin Piperacillin Sod/Tazobactam 50 mls @ 12.5 mls/hr 12/09/22 10:00 12/09/22 13:23 Sod 3.375 gm/ Sodium Chloride IV Infused Q8H KEVIN Infusion Protocol Sodium Chloride 1,000 mls @ 100 mls/hr 12/09/22 03:17 12/09/22 03:34 Sodium Chloride 0.9% IV 100 mls/hr .Q10H KEVIN Administration Sodium Chloride 1,000 mls @ 30 mls/hr 12/09/22 13:45 12/09/22 14:05 Sodium Chloride 0.9% IV 12/10/22 13:44 30 mls/hr .Q24H KEVIN Administration Morphine Sulfate 4 mg 12/09/22 03:17 12/09/22 09:29 Morphine 4 Mg/Ml Sdv 1 Ml IVP 4 mg Q4H PRN Administration SEVERE PAIN PFSH Anesthesia Medical History (Updated 12/09/22 @ 01:45 by Shaun Ragland MD) Daily consumption of alcohol Fracture of hip HTN (hypertension) Hypothyroidism Left acetabular fracture Smoking addiction TIA (transient ischemic attack) Surgical History Amputation, toe, traumatic With lawnmower in childhood H/O shoulder surgery Family History Other Diabetes Social History Smoking and tobacco status: current some day smoker cigarettes [ Other cigarette details: Occasionally, once every several weeks] Alcohol intake: current Substance/Drug Use: never Lives independently: Yes Household members: significant other Marital status: Single Marital status details: Christen Current occupational status: employed 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 Data Anesthesia 12/08/22 20:25 12/08/22 20:25 Short CBC 12/08/22 Range/Units 20:25 WBC 15.5 H (4.0-10.0) 10^3/uL Hgb 16.0 (11.7-16.6) g/dL Hct 47.4 (42.0-52.0) % MCV 95.4 H (80-94) fl Plt Count 282 (130-400) 10^3/cmm Neut % (Auto) 73.7 % Neut # (Auto) 11.41 H (1.8-7.7) 10^3/uL BMP 12/08/22 20:25 Sodium 134 L Potassium 3.7 Chloride 94 L Carbon Dioxide 23 BUN 6 Creatinine 0.6 L Glucose 99 Calcium 9.3 Liver Function 12/08/22 Range/Units 20:25 Total Bilirubin 1.4 H (0.15-1.2) mg/dL AST 26 (0-40) U/L ALT 25 (0-41) U/L Alkaline Phosphatase 114 (40-130) U/L Albumin 4.4 (3.5-5.2) g/dL Urine 12/09/22 Range/Units 00:05 Urine Color Yellow (Yellow) Urine Appearance Clear (CLEAR) Urine pH 8 H (5-7) Ur Specific [place] 1.015 (1.005-1.030) Urine Protein Neg (Negative) Urine Glucose (UA) Norm (Normal) Urine Ketones 1+ H (Negative) Urine Nitrate Negative (Negative) Urine Bilirubin Neg (Negative) Ur Leukocyte Esterase Negative (Negative) Cardiac Studies: No Data to Display
--- NOTE | 2022-12-09 16:21 | P.HP_ITS ---
Providers/Chief Complaint Admitting Physician: Denis Ridley DO Primary Care Provider: CARLA Browne Chief Complaint: upper abd pain History of Present Illness Dayne Hurst is a 57 year old male who presents to the ER with a 2-day history of right upper quadrant abdominal pain radiating to his back. Eating made the pain worse. Nothing made the pain better. He reports nausea but denies any emesis. Denies any diarrhea, constipation, hematochezia and/or melena. Ultrasound shows possible acute cholecystitis Review of Systems General: Reports: 10 or more systems reviewed and unremarkable except in HPI and below Medications/Allergies Home Medications Medication Instructions Recorded Confirmed Last Taken Type aspirin 81 mg tablet,delayed 81 mg PO DAILY 05/31/20 12/09/22 05/31/20 History release (Manny Low Dose Aspirin) omeprazole 20 mg tablet,delayed 20 mg PO DAILY 05/31/20 12/09/22 07/16/20 History release multivitamin with folic acid 400 1 tab PO DAILY #30 tabs 07/17/20 12/09/22 Unknown Rx mcg tablet (Thera) atorvastatin 20 mg tablet 20 mg PO DAILY 12/09/22 12/09/22 Unknown History celecoxib 200 mg capsule 200 mg PO DAILY 12/09/22 12/09/22 Unknown History fluoxetine 40 mg capsule (Prozac) 80 mg PO DAILY 12/09/22 12/09/22 Unknown History furosemide 20 mg tablet (Lasix) 20 mg PO DAILY 12/09/22 12/09/22 Unknown History levothyroxine 75 mcg tablet 75 mcg PO DAILY 12/09/22 12/09/22 Unknown History potassium chloride 10 mEq 10 meq PO DAILY 12/09/22 12/09/22 Unknown History tablet,extended release propranolol 60 mg capsule,24 60 mg PO DAILY 12/09/22 12/09/22 Unknown History hr,extended release Allergies Allergy/AdvReac Type Severity Reaction Status Date / Time No Known Allergies Allergy Verified 11/06/20 14:05 PFSH Acute PFSH: Medical History Daily consumption of alcohol Fracture of hip HTN (hypertension) Hypothyroidism Left acetabular fracture Smoking addiction TIA (transient ischemic attack) Surgical History Amputation, toe, traumatic With lawnmower in childhood H/O shoulder surgery Family History Other Diabetes Social History Smoking and tobacco status: current some day smoker cigarettes [ Other cig arette details: Occasionally, once every several weeks] Alcohol intake: current Substance/Drug Use: never Lives independently: Yes Household members: significant other Marital status: Single Marital status details: Fiance Current occupational status: employed Current occupation: [employer] Vitals/I&O/Wt Last Vital Signs Temp 97.9 F 12/09/22 13:25 Pulse 104 H 12/09/22 13:25 Resp 18 12/09/22 13:25 BP 140/108 12/09/22 13:25 Pulse Ox 90 12/09/22 13:25 O2 Del Method Nasal Cannula 12/09/22 13:25 O2 Flow Rate 1 12/09/22 13:25 12/09/22 12/09/22 12/09/22 06:59 14:59 22:59 Intake Total 50 / 50 50 / 50 Output Total 375 / 375 Balance 50 / 50 -325 / -325 Weight last 48 hrs Weight 252 lb 3.2 oz Weight 260 lb Physical Exam Narrative: General : Patient is well developed , no acute distress, oriented x3 Head : Normal cephalic, a-traumatic. Ears : Pinnae and external canal are normal. Hearing is normal. Eyes : PERRLA, Sclera and injection are normal. No conjunctival discharge. Nose : Mucous membranes are without erythema. Throat : buccal mucosa is normal, gums are without significant recession or hypertrophy. Lungs : Equal chest rise bilaterally, no use of accessory muscles, trachea is midline. Cor : Rate and rhythm are normal. Abdomen : Soft, ND, tender to palpation in right upper quadrant, negative Jensen's, no g/r/m Extremities : No edema, no cyanosis or clubbing, dorsalis pedis pulses are present bilaterally, non-tender to palpation of calves. Upper extremities are normal bilaterally. Back : non-tender to palpation, no CVA tenderness. Neuro : CN II - XII intact, Upper and lower extremities have equal and full strength Data 12/08/22 20:25 12/08/22 20:25 A&P Assessment and plan (1) Acute calculous cholecystitis: Plan Laparoscopic cholecystectomy The risks and benefits of the procedure, including but not limited to, bleeding, infection, scar, numbness, pain, damage to surrounding structures, damage to common bile duct requiring additional surgery, conversion to an open procedure, were explained to the patient. He is understanding of the risks and wishes to proceed. Attestations Medical Necessity Statement*: Patient requires at least 1 night in the hospital for recovery after laparoscopic cholecystectomy Coding Level of Care Code Acute Code for [facility] Diagnoses Acute calculous cholecystitis K80.00
[2022-12-09] MEDS: lidocaine-epi 2% 20 mL INJ 10 ML INJECTION (16:51)
--- NOTE | 2022-12-09 17:57 | P.OP_ITS ---
Operative Report Date of procedure: December 09, 2022 Pre-op diagnosis: Acute calculous cholecystitis Post-op diagnosis: same Procedure done: Laparoscopic cholecystectomy Implants: Surgicel x2 Specimens removed/disposition: Gallbladder Surgeon: Dr. Denis Ridley DO Anesthesia: General Estimated blood loss (mL): 20 Complications: None apparent Brief History: This is a very pleasant 57-year-old gentleman who presented to the ER with acute calculus cholecystitis. Laparoscopic cholecystectomy was indicated. The risks and benefits were explained and documented. Procedure: Patient was wheeled into the operative room and placed on the OR table in a supine position. Abdomen was inspected prepped and draped in usual sterile fashion. Time-out was performed and all present were in agreement. A 15 blade scalp was used to make a stab incision in the left upper quadrant and intra- abdominal insufflation was achieved using a Veress needle. After localizing the tissue incisions were made and a 5 millimeter trocar was placed into the umbilicus as well as 2 in the right upper quadrant. A 12 millimeter trocar was placed in the epigastrium. Gallbladder was grasped and elevated. The gallbladder was quite inflamed and fibrotic. Dense omental adhesions were taken down bluntly. The triangle of Calot was carefully dissected using blunt dissection and electrocautery until the triangle of [place]ot clearly identified. The cystic duct was clipped proximally and double clipped distally. The duct was then ligated proximally. The cystic artery was doubly clipped and ligated. The gallbladder was then removed from the liver bed using electrocautery. The gallbladder was removed from the abdomen using an Endo-Catch bag through the epigastric incision. The liver bed was inspected and no bleeding was seen. The abdomen was irrigated and suctioned. All ports removed. Skin was washed and dried. Incisions were closed with 3-0 and 4-O Vicryl in a subcuticular interrupted fashion. Skin glue was applied. Patient tolerated the procedure well.
[2022-12-09] MEDS: HYDROmorphone 1 mg/mL INJ 1 mL IVP (19:27)
--- NOTE | 2022-12-09 21:49 | ANE.PACU2 ---
Inpatient post-anesthesia follow up: Airway intact: Yes Vital signs: Temperature 98.4 F Pulse Rate 100 Respiratory Rate 17 Blood Pressure 132/98 Pulse Oximetry 90 Oxygen Delivery Me thod Nasal Cannula Oxygen Flow Rate 4 Fraction of Inspir ed Oxygen Hydration adequate: Yes Nausea and vomiting: No Pain level: 1 Mental status: Baseline
[2022-12-09] MEDS: HYDROcodone-acetaminophen 7.5-325 mg Tablet 1 TAB PO (22:15)
[2022-12-10] VITALS (7 sets, daily range): BP systolic 113–150; BP diastolic 73–98; PULSE 86–100; RESP 16–18; TEMP 36.6–36.8; O2SAT 90–95
[2022-12-10] MEDS: piperacillin-tazobactam 3.375 GM in sodium chloride 0.9% (plus) 50 ML IV ×3 (02:04→19:53)
[2022-12-10 05:18] LABS: Basophils % 0.1 %; Hematocrit 44.4 % (42.0-52.0); Hemoglobin 14.2 g/dL (11.7-16.6); Mean Corpuscular Hemoglobin 31.8 pg (28.0-34.0); Mean Corpuscular Volume 99.3 fl (80-94); Mean Platelet Volume 9.9 fL (7.4-10.4); Monocytes # 0.8 10^3/uL (0.2-0.9); Neutrophils # 14.33 10^3/uL (1.8-7.7); Neutrophils % 88.2 %; Nucleated Red Blood Cells % 0 %; Platelet Count 248 10^3/cmm (130-400); Red Blood Count 4.47 10^6/uL (4.1-5.3); Red Cell Distribution Width 13.8 % (12.1-15.1); White Blood Count 16.3 10^3/uL (4.0-10.0)
[2022-12-10 05:34] LABS: Alanine Aminotransferase 28 U/L (0-41); Albumin Level 3.3 g/dL (3.5-5.2); Alkaline Phosphatase 96 U/L (40-130); Anion Gap 16.1 (5-19); Aspartate Amino Transferase 35 U/L (0-40); Blood Urea Nitrogen 10 mg/dL (6-20); Calcium 8.9 mg/dL (8.5-10.5); Carbon Dioxide 23 mmol/L (22-29); Chloride 100 mmol/L (98-107); Globulin 3.4 g/dL (1.3-4.6); Glomerular Filtration Rate 116.2 mL/min (90-130); Glucose 138 mg/dL (65-115); Osmolality Calculated 281 mOsm/kg (285-295); Potassium 4.1 mmol/L (3.5-5.1); Sodium 135 mmol/L (136-145); Total Bilirubin 0.6 mg/dL (0.15-1.2); Total Protein 6.7 g/dL (6.6-8.7)
[2022-12-10] MEDS: HYDROcodone-acetaminophen 7.5-325 mg Tablet 1 TAB PO ×4 (05:50→21:15)
[2022-12-10] MEDS: sodium chloride 0.9% 1,000 ML 100 ML IV ×2 (06:43→17:08)
[2022-12-10] MEDS: fluoxetine 20 mg Capsule 80 MG PO (08:09)
[2022-12-10] MEDS: levothyroxine 75 mcg Tablet PO (08:10)
[2022-12-10] MEDS: FUROsemide 20 mg Tablet PO (08:10)
[2022-12-10] MEDS: atorvastatin 40 mg Tablet 20 MG PO (08:10)
[2022-12-10] MEDS: HYDROmorphone 1 mg/mL INJ 1 mL IVP (11:29)
--- NOTE | 2022-12-10 15:50 | P.PN_ITS ---
Subjective Subjective: Patient seen and examined. Still having significant abdominal pain. Vitals/I&O/Wt Last Vital Signs Temp 98.2 F 12/10/22 15:29 Pulse 95 12/10/22 15:29 Resp 16 12/10/22 15:29 BP 122/83 12/10/22 15:29 Pulse Ox 93 12/10/22 15:29 O2 Del Method Nasal Cannula 12/10/22 15:29 O2 Flow Rate 4 12/10/22 08:00 12/10/22 12/10/22 12/10/22 06:59 14:59 22:59 Intake Total 1340 / 2390 596 / 596 Balance 1340 / 1565 596 / 596 Weight last 48 hrs Weight 252 lb 3.2 oz Weight 260 lb Physical Exam 2 Narrative: General: No acute distress, awake alert and oriented x3 Abdomen: Soft, nondistended, appropriately tender to palpation, no guarding rebound or masses Incisions intact without erythema or exudate Data 12/10/22 04:20 12/10/22 04:20 A&P Assessment and plan (1) S/P laparoscopic cholecystectomy: Plan White blood cell count is up and he has tachycardia Repeat labs in the morning Pain control Antibiotics Attestations Medical Necessity Statement*: Patient requires at least 1 more night in the hospital for pain control and antibiotics following laparoscopic cholecystectomy for acute calculus cholecystitis. Coding Level of Care Code Acute Code for [facility] Fwd Diagnoses S/P laparoscopic cholecystectomy Z90.49
[2022-12-11] MEDS: HYDROcodone-acetaminophen 7.5-325 mg Tablet 1 TAB PO ×3 (02:06→11:12)
[2022-12-11 03:27] LABS: Basophils % 0.2 %; Eosinophils # 0.1 10^3/uL (0.0-0.8); Eosinophils % 0.5 %; Hematocrit 42.2 % (42.0-52.0); Hemoglobin 13.1 g/dL (11.7-16.6); Lymphocytes # 2.3 10^3/uL (0.8-4.8); Lymphocytes % 14.1 %; Mean Corpuscular Volume 103.2 fl (80-94); Monocytes # 1.6 10^3/uL (0.2-0.9); Monocytes % 10.3 %; Neutrophils % 74.4 %; Nucleated Red Blood Cells % 0 %; Platelet Count 194 10^3/cmm (130-400); Red Blood Count 4.09 10^6/uL (4.1-5.3)
[2022-12-11] MEDS: sodium chloride 0.9% 1,000 ML 100 ML IV (03:27)
[2022-12-11] MEDS: piperacillin-tazobactam 3.375 GM in sodium chloride 0.9% (plus) 50 ML IV ×2 (03:27→11:15)
[2022-12-11 03:39] VITALS: BP 127/85; PULSE 84; RESP 15; TEMP 36.6; O2SAT 95
[2022-12-11 03:52] LABS: Alanine Aminotransferase 19 U/L (0-41); Albumin Level 3.3 g/dL (3.5-5.2); Alkaline Phosphatase 88 U/L (40-130); Blood Urea Nitrogen 8 mg/dL (6-20); Calcium 8.7 mg/dL (8.5-10.5); Carbon Dioxide 22 mmol/L (22-29); Chloride 104 mmol/L (98-107); Globulin 2.6 g/dL (1.3-4.6); Glomerular Filtration Rate 138.9 mL/min (90-130); Glucose 89 mg/dL (65-115); Osmolality Calculated 286 mOsm/kg (285-295); Sodium 139 mmol/L (136-145); Total Bilirubin 0.6 mg/dL (0.15-1.2); Total Protein 5.9 g/dL (6.6-8.7)
[2022-12-11 03:59] LABS: Anion Gap 17.5 (5-19); Aspartate Amino Transferase 28 U/L (0-40); Potassium 4.5 mmol/L (3.5-5.1)
--- NOTE | 2022-12-11 06:13 | PC.NURSE ---
bowel sounds present to BUQ and RLQ. absent on LLQ
[2022-12-11] MEDS: FUROsemide 20 mg Tablet PO (08:20)
[2022-12-11] MEDS: atorvastatin 40 mg Tablet 20 MG PO (08:21)
[2022-12-11] MEDS: levothyroxine 75 mcg Tablet PO (08:21)
[2022-12-11] MEDS: fluoxetine 20 mg Capsule 80 MG PO (08:21)
[2022-12-11 08:26] VITALS: BP 140/94; PULSE 90; RESP 16; TEMP 36.6; O2SAT 94
[2022-12-11 12:00] VITALS: BP 123/88; PULSE 91; RESP 16; TEMP 36.6; O2SAT 92
--- NOTE | 2022-12-11 12:45 | PM.DCS ---
Discharge Providers Date of Admission: 12/09/22 02:14 Date of Discharge: December 11, 2022 Attending Provider at Admission: Denis Ridley DO Attending Provider at Discharge: Denis Ridley DO Primary Care Provider: CARLA Browne Diagnoses at Discharge Discharge Diagnosis (1) S/P laparoscopic cholecystectomy: Status: Acute Reason for Visit Reason for Visit: upper abd pain Hospital Course Hospital Course This is a very pleasant 57-year-old gentleman who came in with acute calculus cholecystitis. He underwent laparoscopic cholecystectomy and was discharged home in good condition. Physical Exam Narrative: General : Patient is well developed , no acute distress, oriented x3 Head : Normal cephalic, a-traumatic. Ears : Pinnae and external canal are normal. Hearing is normal. Eyes : PERRLA, Sclera and injection are normal. No conjunctival discharge. Nose : Mucous membranes are without erythema. Throat : buccal mucosa is normal, gums are without significant recession or hypertrophy. Lungs : Equal chest rise bilaterally, no use of accessory muscles, trachea is midline. Cor : Rate and rhythm are normal. Abdomen : Soft, ND, appropriately tender no g/r/m Incisions intact without erythema or exudate Extremities : No edema, no cyanosis or clubbing, dorsalis pedis pulses are present bilaterally, non-tender to palpation of calves. Upper extremities are normal bilaterally. Back : non-tender to palpation, no CVA tenderness. Neuro : CN II - XII intact, Upper and lower extremities have equal and full strength Discharge Data Studies Completed and Pending Completed Studies During Hospitalization Category Date Time Status CT abdomen pelvis w con* [id number] Stat Cat Scan 12/08/22 23:01 Completed Pathology: Surgical [PTH] Routine Pth 12/09/22 17:52 Completed US gall bladder [id number] Stat Ultrasound 12/09/22 00:35 Completed Pending at discharge Category Date Time Status CBC Auto Diff [Complete Blood Count w/Auto] AM LABS Lab 12/12/22 04:00 Ordered CMP [Comprehensive Metabolic Panel] AM LABS Lab 12/12/22 04:00 Ordered Radiology Impressions Abdomen/Pelvis CT 12/08/22 23:01 IMPRESSION: 1. Gallbladder wall calcification and cholelithiasis with minimal pericholecystic edema, consider further evaluation with ultrasound as clinically indicated. 2. Mild constipation. 3. Left arthroplasty changes. 4. Small bilateral right greater than left fat containing inguinal hernias without bowel. 5. Bilateral dependent atelectasis versus infiltrate. 6. Coronary artery atherosclerotic calcifications. 7. Hepatic steatosis. Gallbladder Ultrasound 12/09/22 00:35 IMPRESSION: Cholelithiasis with mild gallbladder wall thickening. Acute cholecystitis suspected. Laboratory Results WBC 16.0 10^3/uL (4.0-10.0) H 12/11/22 02:31 RBC 4.09 10^6/uL (4.1-5.3) L 12/11/22 02:31 Hgb 13.1 g/dL (11.7-16.6) 12/11/22 02:31 Hct 42.2 % (42.0-52.0) 12/11/22 02:31 MCV 103.2 fl (80-94) H 12/11/22 02:31 MCH 32.0 pg (28.0-34.0) 12/11/22 02:31 MCHC 31.0 g/dL (30.0-36.0) 12/11/22 02:31 RDW 14.0 % (12.1-15.1) 12/11/22 02:31 Plt Count 194 10^3/cmm (130-400) 12/11/22 02:31 MPV 10.0 fL (7.4-10.4) 12/11/22 02:31 Neut % (Auto) 74.4 % 12/11/22 02:31 Lymph % (Auto) 14.1 % 12/11/22 02:31 [place] % (Auto) 10.3 % 12/11/22 02:31 Eos % (Auto) 0.5 % 12/11/22 02:31 Baso % (Auto) 0.2 % 12/11/22 02:31 Neut # (Auto) 11.90 10^3/uL (1.8-7.7) H 12/11/22 02:31 Lymph # (Auto) 2.3 10^3/uL (0.8-4.8) 12/11/22 02:31 Gordon # (Auto) 1.6 10^3/uL (0.2-0.9) H 12/11/22 02:31 Eos # (Auto) 0.1 10^3/uL (0.0-0.8) 12/11/22 02:31 Baso # (Auto) 0.0 10^3/uL (0.0-0.1) 12/11/22 02:31 Nucleated RBC % (auto) 0 % 12/11/22 02:31 Nucleated RBCs # 0.0 /100WBC 12/11/22 02:31 Sodium 139 mmol/L (136-145) 12/11/22 02:31 Potassium 4.5 mmol/L (3.5-5.1) 12/11/22 02:31 Chloride 104 mmol/L (98-107) 12/11/22 02:31 Carbon Dioxide 22 mmol/L (22-29) 12/11/22 02:31 Anion Gap 17.5 (5-19) 12/11/22 02:31 BUN 8 mg/dL (6-20) 12/11/22 02:31 Creatinine 0.6 mg/dL (0.7-1.2) L 12/11/22 02:31 GFR Calculation 138.9 mL/min (90-130) H 12/11/22 02:31 Glucose 89 mg/dL (65-115) 12/11/22 02:31 Calculated Osmolality 286 mOsm/kg (285-295) 12/11/22 02:31 Calcium 8.7 mg/dL (8.5-10.5) 12/11/22 02:31 Total Bilirubin 0.6 mg/dL (0.15-1.2) 12/11/22 02:31 AST 28 U/L (0-40) 12/11/22 02:31 ALT 19 U/L (0-41) 12/11/22 02:31 Alkaline Phosphatase 88 U/L (40-130) 12/11/22 02:31 Total Protein 5.9 g/dL (6.6-8.7) L 12/11/22 02:31 Albumin 3.3 g/dL (3.5-5.2) L 12/11/22 02:31 Globulin 2.6 g/dL (1.3-4.6) 12/11/22 02:31 Lipase 21 U/L (13-60) 12/08/22 20:25 Urine Color Yellow (Yellow) 12/09/22 00:05 Urine Appearance Clear (CLEAR) 12/09/22 00:05 Urine pH 8 (5-7) H 12/09/22 00:05 Ur Specific [place] 1.015 (1.005-1.030) 12/09/22 00:05 Urine Protein Neg (Negative) 12/09/22 00:05 Urine Glucose (UA) Norm (Normal) 12/09/22 00:05 Urine Ketones 1+ (Negative) H 12/09/22 00:05 Urine Blood Neg (Negative) 12/09/22 00:05 Urine Nitrate Negative (Negative) 12/09/22 00:05 Urine Bilirubin Neg (Negative) 12/09/22 00:05 Prot Sulfosalicylic Acd Negative (Negative) 12/09/22 00:05 Urine Urobilinogen Norm mg/dL (Negative) 12/09/22 00:05 Ur Leukocyte Esterase Negative (Negative) 12/09/22 00:05 Procedures Performed Laparoscopic cholecystectomy Vitals Last Vital Signs Temp 97.9 F 12/11/22 12:00 Pulse 91 12/11/22 12:00 Resp 16 12/11/22 12:00 BP 123/88 12/11/22 12:00 Pulse Ox 92 12/11/22 12:00 O2 Del Method Nasal Cannula 12/11/22 12:00 O2 Flow Rate 2 12/11/22 12:00 Discharge Plan Discharge Patient Disposition: Home Condition: Stable Prescriptions: New hydrocodone-acetaminophen 7.5-325 mg tablet 1 tab PO Q6H PRN (Reason: pain) Qty: 20 0RF DOK 100 mg capsule 100 mg PO BID Qty: 14 0RF amoxicillin-pot clavulanate 875-125 mg tablet 1 tab PO BID Qty: 16 0RF Continued aspirin [Manny Low Dose Aspirin] 81 mg Tablet,Delayed Release (Dr/Ec) 81 mg PO DAILY Hold Instructions: Resume on 08/14/20. Continue full dose aspirin for 1 month then return to your low-dose aspirin. omeprazole 20 mg Tablet,Delayed Release (Dr/Ec) 20 mg PO DAILY multivitamin with folic acid [Thera] 400 mcg Tablet 1 tab PO DAILY Qty: 30 0RF fluoxetine [Prozac] 40 mg Capsule 80 mg PO DAILY levothyroxine 75 mcg Tablet 75 mcg PO DAILY celecoxib 200 mg capsule 200 mg PO DAILY atorvastatin 20 mg Tablet 20 mg PO DAILY propranolol 60 mg Capsule,Extended Release 24 Hr 60 mg PO DAILY potassium chloride 10 mEq Tablet Extended Release 10 meq PO DAILY Lasix 20 mg Tablet 20 mg PO DAILY Discharge Orders: Discharge Order (Routine); Ordered 12/11/22 Ordered By: Denis Ridley Referrals: Denis Ridley DO [Physician] - 12/22/22 10:30 am Shelly Morin FNP [Primary Care Provider] - 12/15/22 10:20 am (carla renate please arrive by 10:05) Discharge Diet: Advance as tolerated Discharge Activity: Resume usual activity Patient Instructions: Opioid Safety, Post Anesthesia Care Activity Restrictions/Additional Instructions: Do not soak incisions underwater for 2 weeks. Shower daily. Discharge Attestations Time Spent in Discharge Care*: less than 30 min Quality Metrics Clinical Quality Measures [ No reported AMI, CVA or VTE this stay] Coding Level of Care Code Acute Code for Chg Fwd Diagnoses S/P laparoscopic cholecystectomy Z90.49
[2022-12-11 14:06] VITALS: BP 123/88; PULSE 91; RESP 16; TEMP 36.6; O2SAT 92
== END 2022-12-11 14:07 | disposition home or self-care (01) ==
LOC: ER 12-09 01:45 → MEDSURG 12-09 08:35
PROVIDERS: Admitting Provider Surgery; Emergency Provider Emergency Medicine; PCP Registered Nurse; Visit Provider Surgery
PROC: 0FT44ZZ Resection of Gallbladder, Percutaneous Endoscopic Approach (ICD-10-PCS; CPT 47562; principal; 2022-12-09 12:50)
DX: K80.00 Calculus of gallbladder with acute cholecystitis without obstruction (principal); Z79.82 Long term (current) use of aspirin; F17.210 Nicotine dependence, cigarettes, uncomplicated; J44.9 Chronic obstructive pulmonary disease, unspecified; K21.9 Gastro-esophageal reflux disease without esophagitis; E78.5 Hyperlipidemia, unspecified; E66.01 Morbid (severe) obesity due to excess calories; Z68.32 Body mass index [BMI] 32.0-32.9, adult; Z86.73 Personal history of transient ischemic attack (TIA), and cerebral infarction without residual deficits; E03.9 Hypothyroidism, unspecified; I10 Essential (primary) hypertension
CPT/HCPCS: 47562; 36415; 74177; 76705; 80053; 81003; 83690; 85025; 88304; 96365; 96366; 96375; 96376; 99285; G0378; J0330; J0360; J1100; J1170; J2270; J2370; J2405; J2543; J2704; J3010; J3490; J7030; Q9967